=== PATIENT | female | born 1980 | race Caucasian/White ===

== ENCOUNTER → 2017-02-21 | Outpatient (CLI) | payer BC ==
[2017-02-21 09:57] LABS: ALBUMIN 3.5 GM/DL (3.2-5.2); ALBUMIN/GLOBULIN RATIO 0.97 (1.00-1.93); ALKALINE PHOSPHATASE 91 U/L (45-117); ALT/SGPT 25 U/L (12-78); ANION GAP 8 MEQ/L (8-16); AST/SGOT 11 U/L (15-37); BILIRUBIN,TOTAL 0.4 MG/DL (0.2-1.0); BLOOD UREA NITROGEN 14 MG/DL (7-18); CALCIUM LEVEL 8.9 MG/DL (8.5-10.1); CARBON DIOXIDE LEVEL 31 MEQ/L (21-32); CHLORIDE LEVEL 101 MEQ/L (98-107); CHOLESTEROL LEVEL 157 MG/DL (<200); CREATININE FOR GFR 0.74 MG/DL (0.55-1.02); FREE T4 1.74 NG/DL (0.76-1.46); GLOMERULAR FILTRATION RATE > 60.0 (>60); GLUCOSE, FASTING 146 MG/DL (70-105); POTASSIUM SERUM 3.5 MEQ/L (3.5-5.1); SODIUM LEVEL 140 MEQ/L (136-145); TOTAL PROTEIN 7.1 GM/DL (6.4-8.2); TRIGLYCERIDES LEVEL 139 MG/DL (<150)
== END ==
LOC: M LAB 07:58
PROVIDERS: ATTEND Nurse Practitioner Family
DX: E66.01 Morbid (severe) obesity due to excess calories (principal)

== ENCOUNTER → 2017-03-05 | Outpatient (REF) | payer BC | LOC: M SFHCWAGY 08:46 | PROVIDERS: ATTEND Nurse Practitioner Women's Health | DX: Z12.4 Encounter for screening for malignant neoplasm of cervix (principal) ==

== ENCOUNTER → 2017-08-12 | Outpatient (CLI) | payer BC ==
[2017-08-12 08:51] LABS: ANION GAP 8 MEQ/L (8-16); BLOOD UREA NITROGEN 14 MG/DL (7-18); CALCIUM LEVEL 8.7 MG/DL (8.5-10.1); CARBON DIOXIDE LEVEL 27 MEQ/L (21-32); CHLORIDE LEVEL 104 MEQ/L (98-107); CREATININE FOR GFR 0.82 MG/DL (0.55-1.02); FREE T4 1.33 NG/DL (0.76-1.46); GLOMERULAR FILTRATION RATE > 60.0 (>60); GLUCOSE, FASTING 112 MG/DL (70-105); POTASSIUM SERUM 4.4 MEQ/L (3.5-5.1); SODIUM LEVEL 139 MEQ/L (136-145)
[2017-08-12 10:19] LABS: ESTIMATED AVERAGE GLUCOSE 128 MG/DL (60-110); HEMOGLOBIN A1c 6.1 %
== END ==
LOC: M LAB 08:05
DX: R73.09 Other abnormal glucose (principal)

== ENCOUNTER 2017-11-19 14:08 | Emergency (ER) | payer BC | END 2017-11-19 16:23 | disposition home or self-care (01) | LOC: M ED 14:08 | DX: S60.862A Insect bite (nonvenomous) of left wrist, initial encounter (principal); S61.452A Open bite of left hand, initial encounter; W57.XXXA Bitten or stung by nonvenomous insect and other nonvenomous arthropods, initial encounter; Y92.9 Unspecified place or not applicable; Y93.9 Activity, unspecified; Y99.9 Unspecified external cause status; R73.03 Prediabetes; Z79.84 Long term (current) use of oral hypoglycemic drugs; Z79.899 Other long term (current) drug therapy | CPT/HCPCS: 99282 ==

== ENCOUNTER → 2017-12-24 | Outpatient (CLI) | payer BC ==
[2017-12-24 08:32] LABS: ESTIMATED AVERAGE GLUCOSE 146 MG/DL (60-110); HEMOGLOBIN A1c 6.7 %
[2017-12-24 08:48] LABS: ALBUMIN 3.3 GM/DL (3.2-5.2); ALBUMIN/GLOBULIN RATIO 1.06 (1.00-1.93); ALKALINE PHOSPHATASE 72 U/L (45-117); ALT/SGPT 17 U/L (12-78); ANION GAP 6 MEQ/L (8-16); AST/SGOT 12 U/L (7-37); BILIRUBIN,TOTAL 0.3 MG/DL (0.2-1.0); BLOOD UREA NITROGEN 12 MG/DL (7-18); CALCIUM LEVEL 8.2 MG/DL (8.5-10.1); CARBON DIOXIDE LEVEL 27 MEQ/L (21-32); CHLORIDE LEVEL 108 MEQ/L (98-107); CREATININE FOR GFR 0.66 MG/DL (0.55-1.30); GLOMERULAR FILTRATION RATE > 60.0 (>60); GLUCOSE, FASTING 105 MG/DL (70-100); POTASSIUM SERUM 4.2 MEQ/L (3.5-5.1); SODIUM LEVEL 141 MEQ/L (136-145); TOTAL PROTEIN 6.4 GM/DL (6.4-8.2)
== END ==
LOC: M LAB 07:37
DX: R73.09 Other abnormal glucose (principal)
CPT/HCPCS: 80053

== ENCOUNTER → 2018-03-06 | Outpatient (CLI) | payer BC ==
[2018-03-06 09:59] LABS: ALBUMIN 3.5 GM/DL (3.2-5.2); ALBUMIN/GLOBULIN RATIO 1.09 (1.00-1.93); ALKALINE PHOSPHATASE 73 U/L (45-117); ALT/SGPT 20 U/L (12-78); ANION GAP 8 MEQ/L (8-16); AST/SGOT 13 U/L (7-37); BILIRUBIN,TOTAL 0.3 MG/DL (0.2-1.0); BLOOD UREA NITROGEN 11 MG/DL (7-18); CALCIUM LEVEL 8.8 MG/DL (8.5-10.1); CARBON DIOXIDE LEVEL 29 MEQ/L (21-32); CHLORIDE LEVEL 104 MEQ/L (98-107); CREATININE FOR GFR 0.77 MG/DL (0.55-1.30); GLOMERULAR FILTRATION RATE > 60.0 (>60); GLUCOSE, FASTING 93 MG/DL (70-100); POTASSIUM SERUM 4.6 MEQ/L (3.5-5.1); SODIUM LEVEL 141 MEQ/L (136-145); TOTAL PROTEIN 6.7 GM/DL (6.4-8.2)
[2018-03-06 10:28] LABS: ESTIMATED AVERAGE GLUCOSE 134 MG/DL (60-110); HEMOGLOBIN A1c 6.3 %
== END ==
LOC: M LAB 08:07
DX: F90.1 Attention-deficit hyperactivity disorder, predominantly hyperactive type (principal)
CPT/HCPCS: 80053

== ENCOUNTER → 2018-06-18 | Outpatient (CLI) | payer BC ==
[2018-06-18 13:32] LABS: ALBUMIN 3.5 GM/DL (3.2-5.2); ALKALINE PHOSPHATASE 83 U/L (45-117); ALT/SGPT 19 U/L (12-78); ANION GAP 6 MEQ/L (8-16); AST/SGOT 11 U/L (7-37); BILIRUBIN,TOTAL 0.4 MG/DL (0.2-1.0); BLOOD UREA NITROGEN 14 MG/DL (7-18); CALCIUM LEVEL 8.5 MG/DL (8.5-10.1); CARBON DIOXIDE LEVEL 31 MEQ/L (21-32); CHLORIDE LEVEL 103 MEQ/L (98-107); CHOLESTEROL LEVEL 147 MG/DL (<200); CHOLESTEROL RISK RATIO 3.195 (<5); CREATININE FOR GFR 0.86 MG/DL (0.55-1.30); FREE T4 1.24 NG/DL (0.76-1.46); GLOMERULAR FILTRATION RATE > 60.0 (>58); GLUCOSE, FASTING 111 MG/DL (70-100); HDL CHOLESTEROL 46 MG/DL (>40); LDL CHOLESTEROL 81 MG/DL (<100); NON-HDL-C 101 MG/DL; POTASSIUM SERUM 4.2 MEQ/L (3.5-5.1); SODIUM LEVEL 140 MEQ/L (136-145); TRIGLYCERIDES LEVEL 99 MG/DL (<150)
[2018-06-18 13:39] LABS: ESTIMATED AVERAGE GLUCOSE 140 MG/DL (60-110); HEMOGLOBIN A1c 6.5 %
== END ==
LOC: M WUC 08:42
DX: E11.9 Type 2 diabetes mellitus without complications (principal); E78.49 Other hyperlipidemia; E89.0 Postprocedural hypothyroidism
CPT/HCPCS: 84443

== ENCOUNTER → 2018-08-13 | Outpatient (CLI) | payer BC ==
[~2018-08-13] MED LIST: BACT800T5 PO; BUPR300T34; CEPH500T PO; FURO20TA2; LEVO200T4; LISI-542; METF500T13; PHEN-239; PRED20TA PO; SIMV40TA2
--- NOTE | 2018-08-13 09:16 | REPMRS ---
Patient History The patient states she has not had a clinical breast exam in over a year. Family history of lung cancer in maternal grandmother, breast cancer at age 48 in maternal aunt, cervical cancer at age 40 in mother. Taking unspecified hormones for 12 years. Digital Mammo Screening Bilat: August 13, 2018 - Exam #: [id number] Bilateral CC and MLO view(s) were taken. Technologist: Genevieve Morin, Technologist No prior studies available for comparison. FINDINGS: There are scattered fibroglandular densities. There is no evidence of dominant mass, architectural distortion, or clustered microcalcification typical of malignancy. 3-D tomosynthesis shows no additional findings. Assessment: BI-RADS/ACR category 1 mammogram. Negative. Recommendation Routine screening mammogram of both breasts in 1 year (for women over age 40). This patient's Lifetime Breast Cancer RIsk is estimated at 14.6 %. This mammogram was interpreted with the aid of an FDA-approved computer-aided dectection system. Electronically Signed By: Adeel Benavidez MD 08/13/18 0990
== END ==
LOC: M RAD 08:43
PROVIDERS: ATTEND Nurse Practitioner Family
DX: Z12.31 Encounter for screening mammogram for malignant neoplasm of breast (principal); Z80.3 Family history of malignant neoplasm of breast; Z80.1 Family history of malignant neoplasm of trachea, bronchus and lung; Z80.49 Family history of malignant neoplasm of other genital organs

== ENCOUNTER → 2018-09-22 | Outpatient (CLI) | payer BC ==
--- NOTE | 2018-09-22 19:06 | REP ---
Clinical: Pain. Status post fall. Technique: AP and lateral views of the right forearm. Findings: Osseous structures, joint spaces, and surrounding soft tissues are normal. No acute fracture or dislocation. No subcutaneous emphysema or radiodense foreign body. Impression: Acute fracture dislocation. Electronically Signed by Elfego Valderrama MD 09/22/2018 06:58 P
--- NOTE | 2018-09-22 19:07 | REP ---
Clinical: Pain with recent fall/Trauma. Technique: AP, lateral, bilateral oblique views. Findings: The carpal bones, surrounding osseous structures, soft tissues, and joint spaces are normal. There is no evidence for acute fracture or dislocation. No subcutaneous emphysema or radiodense foreign body. Impression: No acute fracture or dislocation Electronically Signed by Elfego Valderrama MD 09/22/2018 06:59 P
== END ==
LOC: M WUC 18:18
PROVIDERS: ATTEND Physician Assistant
DX: M25.531 Pain in right wrist (principal)

== ENCOUNTER → 2018-11-07 | Outpatient (CLI) | payer BC ==
[~2018-11-07] MED LIST changes: +GASTROGRAFIN SOLUTION 30ML (Q9963) As Ordered ONE; +ISOVUE-370 76% 100ML VIAL (Q9967) As Ordered ONE
--- NOTE | 2018-11-07 19:49 | REP ---
CT abdomen and pelvis without and with IV contrast: With oral contrast. History: Abnormal ultrasound showing pancreatic cysts. Pancreatic protocol. CT contrast dose: 100 ml of intravenous Isovue 370. CT findings: Preliminary digital paver radiograph is unremarkable. The lung bases are clear. The liver contains multiple small nonenhancing low densities consistent with cysts. Largest of these is in the quadrate lobe measuring 1.7 cm in greatest diameter. The liver is not felt to be enlarged. No suspicious liver mass lesion is seen. The spleen is normal in size and homogeneous in texture. There is an accessory splenule inferiorly. There are numerous simple cysts affecting the kidneys which are mildly enlarged. This is consistent with polycystic kidney disease. The largest right renal cyst measures 5.2 cm. The largest cyst in the left kidney measures 4.9 cm. There are multiple small cysts in the head and body of the pancreas. There are also calcifications in the pancreatic head. Calcifications suggest chronic pancreatitis. The pancreatic cysts appear to be septated. The largest cystic area in the head of the pancreas measures 2.1 cm in greatest diameter. No evidence of hypervascular or hypovascular mass lesion is seen. No biliary or pancreatic ductal dilation is observed. There is no evidence of regional lymphadenopathy. The gallbladder is unremarkable. No retroperitoneal mass or adenopathy is observed. There is cystic enlargement of the left ovary with some mural thickening along its left posterior celestin. This measures 9.3 x 7.2 x 6.1 cm. The right ovary is unremarkable. Urinary bladder is intact. The uterus is surgically absent. No abdominal wall defect is seen. A normal retrocecal appendix is seen terminating posterior to the inferior liver edge. No bony abnormality is seen. Impression: Multiple bilateral renal, pancreatic, and hepatic cysts. Findings are suggestive of polycystic kidney disease. There are multiple calcifications in the pancreatic head as well and there may be some element of chronic pancreatitis. Consider interval followup of the pancreatic cysts. In addition, there is a 9 cm cystic mass in the left ovary. This should be evaluated sonographically as there appears to be mural thickening which raises suspicion of ovarian malignancy. There is no evidence of ascites or adenopathy. Electronically Signed by Yvan Benavidez MD 11/07/2018 08:18 P
== END ==
LOC: M RAD 15:53
PROVIDERS: ATTEND Internal Medicine Gastroenterology
DX: R93.3 Abnormal findings on diagnostic imaging of other parts of digestive tract (principal); K76.89 Other specified diseases of liver; K86.2 Cyst of pancreas; N28.1 Cyst of kidney, acquired; N83.8 Other noninflammatory disorders of ovary, fallopian tube and broad ligament
CPT/HCPCS: 74178; Q9963; Q9967

== ENCOUNTER → 2018-11-12 | Outpatient (CLI) | payer BC ==
[~2018-11-12] MED LIST changes: -GASTROGRAFIN SOLUTION 30ML (Q9963) As Ordered ONE; -ISOVUE-370 76% 100ML VIAL (Q9967) As Ordered ONE
[2018-11-12 12:52] LABS: ALBUMIN 3.8 GM/DL (3.2-5.2); ALT/SGPT 23 U/L (12-78); BILIRUBIN,TOTAL 0.3 MG/DL (0.2-1.0); BLOOD UREA NITROGEN 5 MG/DL (7-18); CALCIUM LEVEL 8.7 MG/DL (8.5-10.1); CARBON DIOXIDE LEVEL 28 MEQ/L (21-32); CHLORIDE LEVEL 105 MEQ/L (98-107); CREATININE FOR GFR 0.72 MG/DL (0.55-1.30); FREE T4 1.64 NG/DL (0.76-1.46); GLOMERULAR FILTRATION RATE > 60.0 (>58); GLUCOSE, FASTING 111 MG/DL (70-100); POTASSIUM SERUM 3.6 MEQ/L (3.5-5.1); SODIUM LEVEL 140 MEQ/L (136-145); TOTAL PROTEIN 6.9 GM/DL (6.4-8.2)
[2018-11-12 12:58] LABS: HEMOGLOBIN A1c 6.5 %
== END ==
LOC: M WUC 08:36
PROVIDERS: ATTEND Nurse Practitioner Family
DX: E89.0 Postprocedural hypothyroidism (principal); E11.9 Type 2 diabetes mellitus without complications

== ENCOUNTER → 2018-11-17 | Outpatient (CLI) | payer BC ==
--- NOTE | 2018-11-17 14:36 | REP ---
PELVIC ULTRASOUND: Real-time sonographic evaluation of the pelvis is performed utilizing transabdominal and endovaginal technique. The bladder measures 4.4 x 5.8 x 5.2 cm. The patient has had a prior hysterectomy 5 years ago. Right ovary is normal in size and echotexture 2.8 x 1.6 x 2.3 cm. Left ovary is enlarged measure 8.9 x 6.7 x 7.6 cm. There is a large simple cyst in the left ovary 8.5 x 6.8 x 6.1 cm. No definite internal nodules or significant septations are seen. There is no evidence of ovarian torsion bilaterally with duplex Doppler evaluation. IMPRESSION: Large simple cyst left ovary, maximum diameter is 8.5 cm. If no intervention is planned, then I would recommend further evaluation with MRI. Electronically Signed by Aydin Canales MD 11/17/2018 05:43 P
== END ==
LOC: M RAD 12:41
PROVIDERS: ATTEND Nurse Practitioner Family
DX: R93.5 Abnormal findings on diagnostic imaging of other abdominal regions, including retroperitoneum (principal); N83.202 Unspecified ovarian cyst, left side

== ENCOUNTER → 2018-12-03 | Outpatient (CLI) | payer BC | LOC: M SMT 14:34 | PROVIDERS: ATTEND Obstetrics & Gynecology | DX: Z13.79 Encounter for other screening for genetic and chromosomal anomalies (principal) ==

== ENCOUNTER → 2019-01-01 | Outpatient (CLI) | payer BC ==
--- NOTE | 2019-01-01 11:30 | REP ---
LEFT KNEE, FOUR VIEWS: HISTORY: Foreign body. There is no acute fracture or dislocation. The joint spaces are normal in appearance. An osteophyte is present on the medial femur. A 5 mm metallic foreign body is present in the soft tissue along the posterolateral aspect of the distal femur. IMPRESSION: There is a 5 mm foreign body in the soft tissue along the posterolateral aspect of the distal femur. Electronically Signed by Yinka Álvarez MD 01/01/2019 11:35 A
[2019-01-01 19:17] LABS: BLOOD UREA NITROGEN 12 MG/DL (7-18); CREATININE FOR GFR 0.79 MG/DL (0.55-1.30); GLOMERULAR FILTRATION RATE > 60.0 (>58)
== END ==
LOC: M WUC 10:45
PROVIDERS: ATTEND Obstetrics & Gynecology
DX: E11.8 Type 2 diabetes mellitus with unspecified complications (principal); S80.252A Superficial foreign body, left knee, initial encounter; X58.XXXA Exposure to other specified factors, initial encounter; Y92.89 Other specified places as the place of occurrence of the external cause

== ENCOUNTER → 2019-01-03 | Outpatient (CLI) | payer BC ==
--- NOTE | 2019-01-03 14:01 | REP ---
MRA Brain without contrast History: Headache There is no aneurysm, arteriovenous malformation or atherosclerotic lesion. Major intracranial vessels are patent. The vertebral arteries are equal in size. Impression: Normal MRA brain. Electronically Signed by Yinka Álvarez MD 01/03/2019 01:53 P
--- NOTE | 2019-01-03 14:12 | REP ---
MR BRAIN WITHOUT CONTRAST: HISTORY: Headache. A single punctate focus of increased signal intensity on T2-weighted images is present in the subcortical white matter of the left frontal lobe. There is no intraparenchymal hemorrhage, infarct, mass or midline shift. The sella turcica is partially empty. The ventricular system is normal in appearance. There is no extracerebral collection. The sinuses are clear. IMPRESSION: There is a single punctate focus of increased signal intensity in the subcortical white matter of the left frontal lobe. This is a nonspecific finding. Electronically Signed by Yinka Álvarez MD 01/03/2019 02:27 P
== END ==
LOC: M RAD 12:01
PROVIDERS: ATTEND Internal Medicine Nephrology
DX: E28.2 Polycystic ovarian syndrome (principal); R51 Headache

== ENCOUNTER → 2019-02-03 | Outpatient (CLI) | payer BC ==
[~2019-02-03] MED LIST changes: +ADDE20CA3 PO; -BUPR300T34; +BUPR300T34 PO; -FURO20TA2; +FURO20TA2 PO; -LEVO200T4; +LEVO200T4 PO; -LISI-542; +LISI-542 PO; -METF500T13; +METF500T13 PO; +OXYCO5TA PO; -SIMV40TA2; +SIMV40TA2 PO; +VITA1CAP25 PO
--- NOTE | 2019-02-03 17:14 | ECGEPIP ---
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
== END ==
LOC: M EKG 15:51
PROVIDERS: ATTEND Anesthesiology
DX: Z01.818 Encounter for other preprocedural examination (principal); E11.9 Type 2 diabetes mellitus without complications

== ENCOUNTER → 2019-02-03 | Outpatient (CLI) | payer BC ==
--- NOTE | 2019-02-03 23:15 | REP ---
Clinical: Ovarian cyst . Technique: Transabdominal pelvic ultrasound followed by transvaginal examination for better evaluation of the adnexa with color Doppler evaluation of the ovaries. Findings: Bladder is under distended. Evidence of prior hysterectomy without pelvic mass or fluid collection. Right ovary is normal in appearance and vascularity without evidence for torsion and measures 3.0 x 2.1 x 2.0 cm (RI 0.50) . Left ovary measures 9.4 x 8.2 x 8.2 cm ( satisfactory venous flow noted ) dominated by a 9.0 x 6.6 x 6.9 cm complex cyst with daughter cyst. Findings are essentially unchanged compared to prior examination. Impression: 1. Stable complex large cyst dominating the left ovary unchanged from prior examination. Electronically Signed by Elfego Valderrama MD 02/03/2019 11:06 P
== END ==
LOC: M RAD 07:17
PROVIDERS: ATTEND Obstetrics & Gynecology
DX: D27.1 Benign neoplasm of left ovary (principal)

== ENCOUNTER 2019-02-11 06:16 | Day surgery (SDC) | payer BC ==
[~2019-02-11] VITALS: Ht 157.5 cm; Wt 118.8 kg
[~2019-02-11 06:16] MED LIST changes: +LIDOCAINE 1% MDV 20ML VIAL SQ PRN; +LR 1,000 ML IV ONE; -OXYCO5TA PO
[2019-02-11 06:51] LABS: HEMATOCRIT 43.2 % (36.0-47.0); HEMOGLOBIN 14.3 g/dl (12.0-15.5); MEAN CORPUSCULAR HEMOGLOBIN 29.4 pg (27.0-33.0); MEAN CORPUSCULAR HGB CONC 33.1 g/dl (32.0-36.5); MEAN CORPUSCULAR VOLUME 88.9 fl (80.0-96.0); PLATELET COUNT, AUTOMATED 229 10^3/uL (150-450); RED BLOOD COUNT 4.86 10^6/uL (4.00-5.40)
[2019-02-11] MEDS ORDERED: fentaNYL 250 MCG/5 ML INJECTION (J3010) As Ordered ONE (06:58)
[2019-02-11] MEDS ORDERED: MIDAZOLAM INJ 2 MG/2 ML VIAL (J2250) As Ordered ONE (06:58)
[2019-02-11] MEDS ORDERED: SUGAMMADEX SODIUM 500 MG/5 ML VIAL (BRIDION) As Ordered ONE (07:03)
[2019-02-11] MEDS ORDERED: KETOROLAC 60 MG/2 ML VIAL (J1885) As Ordered ONE (07:03)
[2019-02-11] MEDS ORDERED: ACETAMINOPHEN 1000MG 100ML IV BTL (OFIRMEV) (J0131 PER 10MG) As Ordered ONE (07:03)
[2019-02-11] MEDS ORDERED: dexameTHASONE 4 MG/ML 1ML VIAL (J1100) As Ordered ONE (07:03)
[2019-02-11] MEDS ORDERED: LIDOCAINE 2% INJ 100 MG/5 ML SDV (FOR ANES.) As Ordered ONE (07:03)
[2019-02-11] MEDS ORDERED: PROPOFOL 200 MG/20 ML VIAL As Ordered ONE (07:03)
[2019-02-11] MEDS ORDERED: ONDANSETRON 4MG/2ML VIAL (J2405) As Ordered ONE (07:03)
[2019-02-11] MEDS ORDERED: ROCURONIUM BROMIDE 50 MG/5 ML VIAL As Ordered ONE (07:03)
[2019-02-11] MEDS ORDERED: BUPIVACAINE HCL 0.25% 30 ML VIAL As Ordered ONE (07:09)
[2019-02-11] MEDS ORDERED: KETAMINE HCL 200 MG/20 ML VIAL As Ordered ONE (07:48)
[2019-02-11] MEDS ORDERED: GLYCOPYRROLATE INJ 0.2 MG/ML 2 ML VIAL As Ordered ONE (07:50)
[2019-02-11] MEDS ORDERED: OXYCO5TA PO (09:07)
[2019-02-11] MEDS ORDERED: HYDROMORPHONE HCL 0.5 MG/ 0.5 ML SYRINGE (J1170 PER 1) IV PRN (09:30)
[2019-02-11] MEDS ORDERED: PERCOCET 5MG/325MG TAB PO PRN (09:30)
[2019-02-11] MEDS ORDERED: ONDANSETRON 4MG/2ML VIAL (J2405) IV PRN (09:30)
[2019-02-11] MEDS ORDERED: LR 1,000 ML IV SCH ×2 (09:30)
[2019-02-11] MEDS ORDERED: fentaNYL 100 MCG/2 ML INJECTION (J3010) IV PRN (09:30)
[2019-02-11 11:10] VITALS: BP 122/87
--- NOTE | 2019-02-12 12:06 | RO ---
DATE OF PROCEDURE: 02/11/2019 PREOPERATIVE DIAGNOSIS: Left 10 cm ovarian cyst. POSTOPERATIVE DIAGNOSES: Possible left ovarian cyst and significant bowel adhesions. PROCEDURE: Diagnostic laparoscopy. SURGEON: Nicole Bhakta MD ANIMAL KILLER: Daksha Babin MD PGY-3 ANESTHESIA: General. FLUID: 1100 mL. ESTIMATED BLOOD LOSS (EBL): 5 mL. URINE OUTPUT: 50 mL. SPECIMENS: None. FINDINGS: Significant adhesions of bowel and omentum to the anterior abdominal wall, including just underneath the previous Pfannenstiel incision. No cyst visualized in right or left lower quadrant. No safe port entry site other than umbilicus. COMPLICATIONS: None. DESCRIPTION OF PROCEDURE: The patient was met and greeted in the preoperative holding area where all questions were answered and informed consent was reviewed. She was then taken to the operating room where general anesthesia was administered and found to be adequate. She was prepped and draped in the normal sterile fashion in the supine position. A Sanchez catheter was placed prior. Sequential compression devices (SCDs) were on and functioning. A time-out procedure was performed. 0.25% Marcaine was injected at the base of the umbilicus and a 10 mm incision was made on and 11 mm trocar was placed under direct visualization. The carbon dioxide was connected and insufflation was begun. At this time, it was noted that the trocar had been placed through omentum that was adhered to the anterior abdominal wall. The trocar was removed and entered additional times two confirmed that it was just omentum. An abdominal survey was performed, which revealed the findings above. Extensive discussion was had with both Dr. Bhakta and Dr. Perez to try and figure out a safe port site to begin taking down adhesions, and ultimately it was felt that there was no safe site as bowel was adhered to multiple parts of the anterior abdominal wall. After discussion with the patient's family member, the decision was made to not proceed with an open procedure today. The trocar was removed and the skin incision was closed. The patient was taken to the recovery room in stable condition. She tolerated the procedure well. All counts were correct per the operating room staff. Dr. Bhakta was present and scrubbed for the entire procedure. [facility]
== END 2019-02-11 11:20 | disposition home or self-care (01) ==
LOC: M SDC 06:16
PROVIDERS: ATTEND Obstetrics & Gynecology
DX: N73.6 Female pelvic peritoneal adhesions (postinfective) (principal); K56.50 Intestinal adhesions [bands], unspecified as to partial versus complete obstruction; I10 Essential (primary) hypertension; E11.9 Type 2 diabetes mellitus without complications; E03.9 Hypothyroidism, unspecified; F32.9 Major depressive disorder, single episode, unspecified; Q61.3 Polycystic kidney, unspecified; F17.210 Nicotine dependence, cigarettes, uncomplicated; Z79.84 Long term (current) use of oral hypoglycemic drugs; Z79.899 Other long term (current) drug therapy
CPT/HCPCS: 36415; 49320; 85027; 86850; 86900; 86901; J0131; J1100; J1885; J2250; J2405; J3010

== ENCOUNTER → 2019-03-13 | Outpatient (CLI) | payer BC ==
[~2019-03-13] MED LIST changes: -LIDOCAINE 1% MDV 20ML VIAL SQ PRN; -LR 1,000 ML IV ONE; +OXYCO5TA PO; +PROHANCE 279.3MG/ML 15ML VIAL (A9576) As Ordered ONE; +PROHANCE 279.3MG/ML 5ML VIAL (A9576) As Ordered ONE
--- NOTE | 2019-03-13 18:15 | REP ---
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 Comparison mammography August 13, 2018. Technique:3 Aimee MRI imaging was performed with a dedicated breast coil. Axial, coronal, and sagittal T1 and T2-weighted scans were obtained with and without fat saturation in the usual fashion. The study includes dynamically acquired post gadolinium enhanced imaging subtraction imaging. Maximal intensity projection and multiplanar re-formation imaging is included as well. The study was interpreted with the aid of Painting With A TwistD, an FDA approved computer-aided detection (CAD) software program, on a dedicated breast MRI work station. The gadolinium enhancement dose is 20 ml of intravenous ProHance. Findings: There are mild to moderate scattered fibroglandular elements present bilaterally. There is no evidence of axillary adenopathy or significant breast cystic change. High-resolution pre- and postcontrast T1 and T2-weighted scans show no evidence of suspicious morphologic abnormality. Dynamically acquired sequential post contrast images show no suspicious focus of enhancement and/or washout in either breast to suggest malignancy. Subtraction images are unremarkable. Impression: BIRADS category 1 negative bilateral breast MRI study. Electronically Signed by Yvan Benavidez MD 03/16/2019 08:23 A
== END ==
LOC: M RAD 14:35
PROVIDERS: ATTEND Obstetrics & Gynecology
DX: Z15.01 Genetic susceptibility to malignant neoplasm of breast (principal)

== ENCOUNTER 2019-04-17 06:10 | Day surgery (SDC) | payer BC ==
[~2019-04-17] VITALS: Ht 157.5 cm; Wt 117.0 kg
[~2019-04-17 06:10] MED LIST changes: +LIDOCAINE 1% MDV 20ML VIAL SQ PRN; +LR 1,000 ML IV ONE; -PROHANCE 279.3MG/ML 15ML VIAL (A9576) As Ordered ONE; -PROHANCE 279.3MG/ML 5ML VIAL (A9576) As Ordered ONE
[2019-04-17 06:36] LABS: HEMOGLOBIN 14.2 g/dl (12.0-15.5); MEAN CORPUSCULAR HEMOGLOBIN 30.3 pg (27.0-33.0); MEAN CORPUSCULAR HGB CONC 33.8 g/dl (32.0-36.5); MEAN CORPUSCULAR VOLUME 89.6 fl (80.0-96.0); PLATELET COUNT, AUTOMATED 243 10^3/uL (150-450); RED BLOOD COUNT 4.69 10^6/uL (4.00-5.40); WHITE BLOOD COUNT 9.5 10^3/uL (4.0-10.0)
[2019-04-17] MEDS ORDERED: VASOPRESSIN INJ 20 UNITS/ML VIAL As Ordered ONE (06:54)
[2019-04-17] MEDS ORDERED: BUPIVACAINE HCL 0.25% 30 ML VIAL As Ordered ONE (06:54)
[2019-04-17] MEDS ORDERED: PROPOFOL 200 MG/20 ML VIAL As Ordered ONE (06:55)
[2019-04-17] MEDS ORDERED: LIDOCAINE 2% INJ 100 MG/5 ML SDV (FOR ANES.) As Ordered ONE (06:55)
[2019-04-17] MEDS ORDERED: ROCURONIUM BROMIDE 50 MG/5 ML VIAL As Ordered ONE ×2 (06:55→08:33)
[2019-04-17] MEDS ORDERED: ONDANSETRON 4MG/2ML VIAL (J2405) As Ordered ONE (06:56)
[2019-04-17] MEDS ORDERED: KETOROLAC 60 MG/2 ML VIAL (J1885) As Ordered ONE (06:56)
[2019-04-17] MEDS ORDERED: dexameTHASONE 4 MG/ML 1ML VIAL (J1100) As Ordered ONE (06:56)
[2019-04-17] MEDS ORDERED: MIDAZOLAM INJ 2 MG/2 ML VIAL (J2250) As Ordered ONE (07:02)
[2019-04-17] MEDS ORDERED: fentaNYL 250 MCG/5 ML INJECTION (J3010) As Ordered ONE (07:02)
[2019-04-17] MEDS ORDERED: ceFAZolin 2 GM/D5W 50 ML IV BAG (J0690 PER 500MG) As Ordered ONE (08:09)
[2019-04-17] MEDS ORDERED: ACETAMINOPHEN 1000MG 100ML IV BTL (OFIRMEV) (J0131 PER 10MG) As Ordered ONE (08:13)
[2019-04-17] MEDS ORDERED: GLYCOPYRROLATE INJ 0.2 MG/ML 2 ML VIAL As Ordered ONE (08:28)
[2019-04-17] MEDS ORDERED: SUGAMMADEX SODIUM 500 MG/5 ML VIAL (BRIDION) As Ordered ONE (08:32)
[2019-04-17] MEDS ORDERED: fentaNYL 100 MCG/2 ML INJECTION (J3010) As Ordered ONE ×2 (08:53→10:01)
[2019-04-17] MEDS: fentaNYL 100 MCG/2 ML INJECTION (J3010) IV PRN ×4 (10:05→10:20)
[2019-04-17] MEDS ORDERED: oxyCODONE 5MG TAB As Ordered ONE (10:17)
[2019-04-17] MEDS ORDERED: MORPHINE 1MG/ML IN 0.9% NACL 100ML IV BAG IV PRN (10:30)
[2019-04-17] MEDS ORDERED: NALBUPHINE HCL 10 MG/ML AMP (J2300) IV PRN (10:30)
[2019-04-17] MEDS ORDERED: NALOXONE INJ 0.4 MG/1 ML VIAL (J2310) IV PRN (10:30)
[2019-04-17] MEDS ORDERED: EPIDURAL/PCA KEYS XX PRN (10:30)
[2019-04-17] MEDS ORDERED: PROMETHAZINE INJ 25 MG/ML VIAL (J2550) IV PRN (10:30)
[2019-04-17] MEDS ORDERED: LR 1,000 ML IV SCH ×2 (10:30→11:00)
[2019-04-17] MEDS ORDERED: ONDANSETRON 4MG/2ML VIAL (J2405) IV PRN ×2 (10:30→11:00)
[2019-04-17] MEDS ORDERED: diphenhydrAMINE INJ 50MG/ML VIAL (J1200) IV PRN (10:30)
[2019-04-17] MEDS ORDERED: oxyCODONE 5MG TAB PO PRN (11:00)
[2019-04-17 11:30] VITALS: BP 124/74
[2019-04-17 12:00] VITALS: BP 118/72
[2019-04-17 12:30] VITALS: BP 112/75
[2019-04-17 13:30] VITALS: BP 115/75
[2019-04-17 14:16] VITALS: O2SAT 99
[2019-04-17] MEDS: KETOROLAC 30 MG/ML VIAL (J1885) IV SCH ×2 (14:40→22:34)
[2019-04-17] MEDS ORDERED: NS 1,000 ML IV SCH (14:45)
[2019-04-17 22:00] VITALS: BP 112/69
[2019-04-18 02:00] VITALS: BP 107/67
[2019-04-18] MEDS: KETOROLAC 30 MG/ML VIAL (J1885) IV SCH (04:43)
[2019-04-18 06:00] VITALS: BP 105/66
[2019-04-18] MEDS ORDERED: LEVOTHYROXINE 125MCG TABLET (0.125MG) PO SCH (06:00)
[2019-04-18 06:47] LABS: HEMATOCRIT 37.6 % (36.0-47.0); HEMOGLOBIN 12.5 g/dl (12.0-15.5); MEAN CORPUSCULAR HEMOGLOBIN 30.4 pg (27.0-33.0); MEAN CORPUSCULAR HGB CONC 33.2 g/dl (32.0-36.5); MEAN CORPUSCULAR VOLUME 91.5 fl (80.0-96.0); PLATELET COUNT, AUTOMATED 217 10^3/uL (150-450); RED BLOOD COUNT 4.11 10^6/uL (4.00-5.40); WHITE BLOOD COUNT 10.9 10^3/uL (4.0-10.0)
[2019-04-18] MEDS ORDERED: IBUPROFEN 800 MG TAB PO PRN (09:00)
[2019-04-18] MEDS ORDERED: METF-954 PO (09:56)
[2019-04-18] MEDS ORDERED: LEVO50TA45 PO (09:56)
[2019-04-18] MEDS ORDERED: ADDE20TA PO (09:56)
[2019-04-18] MEDS: metFORMIN 850 MG TAB PO SCH ×2 (09:59→17:34)
[2019-04-18] MEDS: LEVOTHYROXINE 125MCG TABLET (0.125MG) PO SCH (09:59)
[2019-04-18 10:00] VITALS: BP 109/73
[2019-04-18] MEDS: LISINOPRIL 5 MG TAB PO SCH (10:00)
[2019-04-18] MEDS: buPROPion **XL** TABLET 150MG (WELLBUTRIN XL) PO SCH (10:00)
[2019-04-18] MEDS: ADDERALL 5 MG TAB PO SCH ×2 (10:06→14:25)
[2019-04-18] MEDS: PERCOCET 5MG/325MG TAB PO PRN ×2 (10:08→14:25)
[2019-04-18 14:00] VITALS: BP 110/69
[2019-04-18] MEDS ORDERED: ONDANSETRON 4MG/2ML VIAL (J2405) IV PRN (19:30)
[2019-04-18 22:00] VITALS: BP 116/77
[2019-04-19] MEDS: SIMETHICONE 80 MG CHEW TAB PO PRN ×2 (01:07→14:56)
[2019-04-19 06:00] VITALS: BP 139/77
[2019-04-19] MEDS: LEVOTHYROXINE 125MCG TABLET (0.125MG) PO SCH (06:30)
[2019-04-19] MEDS: metFORMIN 850 MG TAB PO SCH ×2 (08:00→18:33)
[2019-04-19] MEDS: ADDERALL 5 MG TAB PO SCH ×2 (08:52→14:04)
[2019-04-19] MEDS: buPROPion **XL** TABLET 150MG (WELLBUTRIN XL) PO SCH (08:52)
[2019-04-19 08:53] VITALS: BP 115/81
[2019-04-19] MEDS: LISINOPRIL 5 MG TAB PO SCH (08:53)
[2019-04-19 14:00] VITALS: BP 136/76
[2019-04-19] MEDS: DOCUSATE SODIUM 100 MG CAP PO SCH ×2 (14:04→22:52)
[2019-04-19] MEDS: PERCOCET 5MG/325MG TAB PO PRN (14:04)
[2019-04-19 22:00] VITALS: BP 113/79
[2019-04-20] MEDS: PERCOCET 5MG/325MG TAB PO PRN ×2 (02:24→08:29)
[2019-04-20 06:00] VITALS: BP 112/79
[2019-04-20] MEDS: LEVOTHYROXINE 125MCG TABLET (0.125MG) PO SCH (06:21)
[2019-04-20] MEDS ORDERED: OXYC1TAB23 PO (07:13)
[2019-04-20] MEDS ORDERED: IBUP80TA PO (07:15)
[2019-04-20] MEDS: ADDERALL 5 MG TAB PO SCH (08:29)
[2019-04-20] MEDS: metFORMIN 850 MG TAB PO SCH (08:30)
[2019-04-20] MEDS: LISINOPRIL 5 MG TAB PO SCH (08:30)
[2019-04-20] MEDS: DOCUSATE SODIUM 100 MG CAP PO SCH (08:30)
[2019-04-20] MEDS: buPROPion **XL** TABLET 150MG (WELLBUTRIN XL) PO SCH (08:30)
--- NOTE | 2019-04-21 07:32 | DSES ---
DATE OF ADMISSION: 04/17/2019 DATE OF DISCHARGE: 04/20/2019 ADMISSION DIAGNOSIS: Left ovarian cystis mass, pelvic adhesions. DISCHARGE DIAGNOSIS: Left ovarian cystic mass, pelvic adhesions. PROCEDURE: Exploratory laparotomy, lysis of adhesions, left salpingo-oophorectomy. HISTORY: This is a 38-year-old female with multiple previous abdominal surgeries admitted for laparotomy due to large left ovarian complex mass. The mass was attempted to be removed laparoscopically in the past, however, massive pelvic adhesions prevented this approach. HOSPITAL COURSE: On 04/17/2019, the patient underwent exploratory laparotomy, lysis of adhesions and removal of left ovarian mass. The procedure was without complications. Her postoperative course was unremarkable. She had adequate return of bladder and bowel function. Her postoperative hemoglobin was 12.5 g/dl. She was deemed stable for discharge on postoperative day #3. DISPOSITION: The patient will followup with Dr. Bhakta in two weeks. Instructions reviewed.
--- NOTE | 2019-04-21 16:12 | RO ---
DATE OF OPERATION: 04/17/2019 PREOPERATIVE DIAGNOSIS: Left adnexal mass. POSTOPERATIVE DIAGNOSIS: Left adnexal mass. PROCEDURES PERFORMED: 1. Exploratory laparotomy with left oophorectomy. 2. Lysis of adhesions. SURGEON: Nicole Bhakta MD ACTIVE DIRECTORY SPECIALIST: Yinka Perez MD ANESTHESIA: General tracheal anesthesia. INFECTION CLASSIFICATION: #2. PREOPERATIVE ANTIBIOTICS: 2 grams of Ancef. ESTIMATED BLOOD LOSS: 20 mL. URINE OUPTPUT: 100 mL. INTRAVENOUS FLUIDS: 900 mL of lactated Ringer solution. OPERATIVE FINDINGS: Large, approximately 8 cm left ovarian mass. Dense abdominal adhesions. Normal-appearing right ovary. Left ureter was visualized. DESCRIPTION OF OPERATION: After informed consent was obtained and written consent was reviewed, the patient was brought to the operating room where she was placed in a supine position and general endotracheal anesthesia was administered. She was then prepped and draped in normal sterile fashion. Sanchez catheter was set and placed to gravity. Time-out in the operating room was then performed identifying the patient, procedure to be performed, as well as drug allergies. A Pfannenstiel skin incision was made along the previous skin incision and this was carried down to the underlying rectus fascia. The fascia was scored and was extended bilaterally. The fascia was dissected off the underlying rectus muscles both superiorly inferiorly. The rectus muscles were entered in the midline. The peritoneum was then tented and excised and was entered sharply. This was done with care. Meticulous dissection freed up omentum and bowel from the anterior abdominal wall. With a series of sharp and blunt dissection, the left pelvic sidewall was clear freeing up the left adnexa. Once cleared, the left ureter was identified. Once identified, the left infundibulopelvic ligament was doubly clamped and ligated. The specimen was removed intact. This area was stitch tied with #0 Vicryl. The abdomen was irrigated and suctioned. Surgical sites were inspected and noted be hemostatic. The right ovary was then dissected out and it was identified and appeared to be normal. The rectus muscles were then reapproximated with #3-0 Vicryl and this was done incorporating some of the anterior peritoneum. Subcutaneous tissue was then closed using #3-0 Vicryl. Several subdermal stitches were placed with #3-0 Vicryl and the skin was closed with #4-0 Monocryl in a subcuticular fashion. The incision was then cleaned and dried. Steri-Strips were applied over the incision. The incision was dressed. The patient was then awoken from general anesthesia and taken to recovery in stable condition. Counts were correct.
== END 2019-04-20 09:58 | disposition home or self-care (01) ==
LOC: M SDC 06:10 → M MSPAV 11:27 → M SDC 04-20 09:58
PROVIDERS: ATTEND Obstetrics & Gynecology
DX: D27.1 Benign neoplasm of left ovary (principal); N73.6 Female pelvic peritoneal adhesions (postinfective); E11.9 Type 2 diabetes mellitus without complications; I10 Essential (primary) hypertension; E78.5 Hyperlipidemia, unspecified; E03.9 Hypothyroidism, unspecified; F41.9 Anxiety disorder, unspecified; F32.9 Major depressive disorder, single episode, unspecified; F17.210 Nicotine dependence, cigarettes, uncomplicated; Z79.84 Long term (current) use of oral hypoglycemic drugs; Z79.899 Other long term (current) drug therapy
CPT/HCPCS: 36415; 58661; 85027; 86850; 86900; 86901; 88307; 96361; 96374; 96375; 96376; J0131; J0690; J1100; J1885; J2250; J2405; J3010

== ENCOUNTER 2019-04-23 23:37 | Inpatient (IN) | payer BC ==
[~2019-04-23] VITALS: Ht 157.5 cm; Wt 118.4 kg
[~2019-04-23 23:37] MED LIST changes: +ADDE20TA PO; +IBUP80TA PO; +LEVO50TA45 PO; -LIDOCAINE 1% MDV 20ML VIAL SQ PRN; -LR 1,000 ML IV ONE; +METF-954 PO; +OXYC1TAB23 PO
[2019-04-24] MEDS ORDERED: KETOROLAC 30 MG/ML VIAL (J1885) IV ONE (00:30)
[2019-04-24] MEDS ORDERED: NS 1,000 ML IV SCH (00:30)
[2019-04-24] MEDS ORDERED: ONDANSETRON 4MG/2ML VIAL (J2405) IV ONE ×2 (00:30→01:45)
[2019-04-24 00:46] LABS: BASO % 0.2 % (0.0-1.0); EOS # 0.1 10^3/uL (0.0-0.5); EOS % 1.3 % (0.0-3.0); HEMATOCRIT 40.1 % (36.0-47.0); HEMOGLOBIN 13.4 g/dl (12.0-15.5); LYMPH # 1.9 10^3/uL (1.5-5.0); LYMPH % 20.3 % (24.0-44.0); MEAN CORPUSCULAR HEMOGLOBIN 30.1 pg (27.0-33.0); MEAN CORPUSCULAR HGB CONC 33.4 g/dl (32.0-36.5); MEAN CORPUSCULAR VOLUME 90.1 fl (80.0-96.0); MONO # 0.4 10^3/uL (0.0-0.8); MONO % 4.8 % (0.0-5.0); NEUTROPHILS # 6.6 10^3/uL (1.5-8.5); NEUTROPHILS % 72.9 % (36.0-66.0); PLATELET COUNT, AUTOMATED 268 10^3/uL (150-450); RED BLOOD COUNT 4.45 10^6/uL (4.00-5.40); WHITE BLOOD COUNT 9.1 10^3/uL (4.0-10.0)
[2019-04-24] MEDS: GASTROGRAFIN SOLUTION 30ML PO SCH ×2 (00:46→00:51)
[2019-04-24 01:14] LABS: BLOOD UREA NITROGEN 14 MG/DL (7-18); CARBON DIOXIDE LEVEL 26 MEQ/L (21-32); CHLORIDE LEVEL 104 MEQ/L (98-107); CREATININE FOR GFR 0.79 MG/DL (0.55-1.30); GLOMERULAR FILTRATION RATE > 60.0 (>58); GLUCOSE, FASTING 122 MG/DL (70-100); POTASSIUM SERUM 4.1 MEQ/L (3.5-5.1); SODIUM LEVEL 139 MEQ/L (136-145)
[2019-04-24] MEDS ORDERED: ISOVUE-370 76% 100ML VIAL (Q9967) As Ordered ONE (01:54)
--- NOTE | 2019-04-24 02:29 | REP ---
Clinical: Abdominal pain with nausea and vomiting. Technique: Upright view of the chest with supine and upright views of the abdomen and pelvis. Findings: Frontal upright view of the chest is unremarkable and without free air below diaphragm to suspect pneumoperitoneum. Upright view of the abdomen demonstrates multiple air fluid levels with moderately distended loops of small bowel along with normal large bowel gas pattern. Findings are nonspecific and may represent enterocolitis as well as early/partial small bowel obstruction. No abnormal calcifications. No organomegaly. Skeletal structures are intact. Impression: Moderately distended small bowel with air-fluid levels. Differential diagnosis includes early/partial small bowel obstruction as well as enteritis. Electronically Signed by Elfego Valderrama MD 04/24/2019 02:21 A
[2019-04-24] MEDS ORDERED: METOCLOPRAMIDE INJ 10MG/2ML VIAL (J2765) IV ONE (03:30)
--- NOTE | 2019-04-24 03:39 | REPVR ---
PROCEDURE INFORMATION: Exam: CT Abdomen and Pelvis With Contrast Exam date and time: 04/24/2019 12:20 AM Clinical history: 38 years old, female; Abdominal pain; Generalized; Prior surgery; Surgery date: 3-7 days post-operative; Surgery type: Cyst removal ovarian & adhesions. ; Additional info: R/O sbo post op TECHNIQUE: Imaging protocol: Computed tomography of the abdomen and pelvis with intravenous contrast. Radiation optimization: All CT scans at this facility use at least one of these dose optimization techniques: automated exposure control; mA and/or kV adjustment per patient size (includes targeted exams where dose is matched to clinical indication); or iterative reconstruction. Contrast material: ISO; Contrast volume: 100 ml; Contrast route: AC; COMPARISON: CT ABD PELVIS W/O FOL BY WIT 11/07/2018 5:43 PM FINDINGS: Liver: Normal. No mass. Gallbladder and bile ducts: Normal. No calcified stones. No ductal dilation. Pancreas: There are multiple small cysts in the head and body of the pancreas. There are also calcifications in the pancreatic head. Calcifications suggest chronic pancreatitis. The pancreatic cysts appear to be septated. The largest cystic area in the head of the pancreas measures 2.1 cm in greatest diameter. Findings are stable from prior examination. Spleen: Normal. No splenomegaly. Adrenals: Normal. No mass. Kidneys and ureters: Multiple bilateral renal cysts, stable consistent with polycystic kidney disease. Stomach and bowel: Multiple dilated contrast filled small bowel loops measuring up to 4.5 cm with surrounding mesenteric edema and fluid between the dilated bowel loops.Feacalization of dilated distal small bowel. Transition point is seen in the mid abdomen (series 201 image 112). Decompressed distal small bowel loops. Findings represent small bowel obstruction. Moderate fecal loading in the colon. Appendix: No evidence of appendicitis. Intraperitoneal space: Unremarkable. No free air. No significant fluid collection. Vasculature: Mild atherosclerosis. Lymph nodes: Unremarkable. No enlarged lymph nodes. Bladder: Unremarkable as visualized. Reproductive: Status post hysterectomy. Bones/joints: Unremarkable. No acute fracture. Soft tissues: Postsurgical changes of anterior abdominal wall. IMPRESSION: 1. Multiple dilated contrast filled small bowel loops measuring up to 4.5 cm with surrounding mesenteric edema and fluid between the dilated bowel loops.Feacalization of dilated distal small bowel. Transition point is seen in the mid abdomen (series 201 image 112). Decompressed distal small bowel loops. Findings represent small bowel obstruction. 2. Moderate fecal loading in the colon. COMMENT: Consistent with the [place] [employer]'s Incidental Findings Committee Report (J Am Ren Radiol 2010): Unless the patient's specific circumstances suggest otherwise, any liver lesion 0.5 cm or less, any cystic kidney lesion less than 1.0 cm, and/or any adrenal lesion 1.0 cm or less not otherwise characterized in this report as possessing suspicious or indeterminate imaging features is/are highly likely to be benign and do not require follow-up imaging or biopsy. Electronically signed by: Hilaria Yost On 04/24/2019 03:38:57 AM
[2019-04-24] MEDS ORDERED: PERC5TAB12 PO (04:18)
[2019-04-24] MEDS ORDERED: IBUP1TAB7 PO (04:18)
[2019-04-24] MEDS ORDERED: LR 1,000 ML IV ONE (05:30)
[2019-04-24 06:10] VITALS: BP 134/83
--- NOTE | 2019-04-24 06:41 | HPE ---
DATE OF ADMISSION: 04/24/2019 This is a 38-year-old 2, para 2 female postop day number 7 status post exploratory laparotomy with left salpingo-oophorectomy who presents with three days of increasing diffuse abdominal pain. She began to vomit intermittently at least once a day. She has not had a bowel movement since surgery and tried multiple courses of laxatives. She finally presented to the ER due to increasing pain. MEDICAL HISTORY: 1. Diabetes. 2. Hypertension. 3. Hypothyroidism. MEDICATIONS: - bupropion XL 300 mg - Adderall 20 mg twice a day - Lasix 20 mg daily - ibuprofen 800 mg every 6 hours as needed for pain - levothyroxine 200 mcg daily - lisinopril 5 mg by mouth daily - metformin 850 mg twice a day - Percocet 5/325 one three times a day as needed - simvastatin 40 mg daily SURGICAL HISTORY: 1. section. 2. section. 3. Total abdominal hysterectomy. 4. February 12, 2019 diagnostic laparoscopy. 5. April 17, 2019 exploratory laparotomy with left salpingo-oophorectomy. ALLERGIES: None. SOCIAL HISTORY: Patient lives in [place]. She smokes cigarettes daily. She denies alcohol or illicit drug use. FAMILY HISTORY: Noncontributory. PHYSICAL EXAMINATION: Blood pressure 136/98, pulse 89, respiratory rate 20, temperature 97.6. Head and neck exam is normal. Heart regular rate and rhythm. Abdomen is distended, mildly tender. Decreased bowel sounds. Extremities nontender. LABS: White blood count 9.1, hemoglobin 13.4. IMAGING: Abdominal x-ray moderately distended loops of small bowel with air fluid levels. CT scan dilated loops of small bowel and transition at the mid abdomen level. Consistent with probable small bowel obstruction. ASSESSMENT: 38-year-old 2, para 2 female postop day 7 status post exploratory laparotomy with left salpingo-oophorectomy presents with onset of small bowel obstruction. PLAN: NG tube was placed for bowel decompression. The patient will be admitted for IV fluids and pain management. Consult general surgery for assistance in management of small bowel obstruction postoperatively.
[2019-04-24] MEDS ORDERED: GLUCOSE 4 GM CHEW TABLET PO PRN (07:15)
[2019-04-24] MEDS ORDERED: DEXTROSE 50% 50 ML SYRINGE IV PRN (07:15)
[2019-04-24] MEDS ORDERED: GLUCAGON FOR INJ 1 MG VIAL (J1610) SC PRN (07:15)
[2019-04-24] MEDS: LR 1,000 ML IV SCH ×3 (07:19→22:21)
[2019-04-24 08:00] VITALS: BP 123/75
[2019-04-24] MEDS: HumaLOG INSULIN (NovoLOG) PER UNIT SC SCH ×3 (08:24→17:30)
[2019-04-24] MEDS: KETOROLAC 30 MG/ML VIAL (J1885) IV PRN ×3 (08:24→22:21)
[2019-04-24] MEDS: CHLORASEPTIC SPRAY MT PRN ×3 (12:01→22:21)
[2019-04-24 16:00] VITALS: BP 118/68
[2019-04-24] MEDS: ONDANSETRON 4MG/2ML VIAL (J2405) IV PRN (19:08)
[2019-04-24 20:00] VITALS: BP 133/80
--- NOTE | 2019-04-24 23:11 | CR ---
DATE OF CONSULTATION: 04/24/2019 REASON FOR CONSULTATION: Small bowel obstruction. HISTORY OF PRESENT ILLNESS The patient is a 38-year-old female patient currently admitted to Dr. Perez with OB. She underwent a lower midline laparotomy a week ago with a left salpingo-oophorectomy and lysis of adhesions. She was kept in the hospital over the weekend, discharged postop day #3. She was doing well but she had not had any bowel movements. She claims she has not had a bowel movement since the day prior to that procedure. She is passing flatus. She has had increased abdominal distention, some nausea and vomiting over the past couple days and that is why she came in to the emergency room. Her labs are stable. Imaging shows likely a small bowel obstruction with transition in the mid abdomen consistent with small bowel obstruction. She already has an NG tube in place and she was admitted to OB. They have asked me to consult. Since placement of the NG her abdominal pain is almost completely resolved. It is putting out bilious drainage and no more nausea or vomiting. She did not have any fevers. She has had a few previous abdominal surgeries, but they were all below the umbilicus with a couple c-sections and a hysterectomy and this salpingo-oophorectomy. PAST MEDICAL HISTORY Diabetes, hypertension, hypothyroidism. PAST SURGICAL HISTORY Two C-sections, a total hysterectomy, diagnostic laparoscopy and laparotomy with a left salpingo-oophorectomy. ALLERGIES: None. HOME MEDICATIONS: Please see medical record. FAMILY HISTORY: Noncontributory. SOCIAL HISTORY: Smokes pack a day. Denies drug or alcohol abuse. REVIEW OF SYSTEMS: Pertinent positive and negatives as stated in HPI. PHYSICAL EXAMINATION General: Alert and oriented times three. No acute distress. Vitals: Temperature 97.4, pulse 79, respiration 20, blood pressure 123/75, pulse ox 95% room air. HEENT: Pupils equal round, react to light and accommodation. Heart: S1, S2 regular rate and rhythm. Lungs: Clear to auscultation bilaterally. Abdomen: Soft and nondistended. Mild tenderness diffusely. No rebounding or guarding. No signs of any ventral hernias. Extremities: No clubbing, cyanosis or edema. LABORATORY DATA White count 91, hemoglobin 13.4, platelets 268. IMAGING STUDIES CT abdomen and pelvis shows multiple dilated loops of small bowel up to 4.5 cm with surrounding mesenteric edema, fluid between the dilated bowel loops. Fecalization of dilated distal small bowel. Transition point the mid abdomen. Decompressed distal small bowel loops. Findings represent a small bowel obstruction. ASSESSMENT/PLAN The patient a 38-year-old female postop day #7 from a lower midline laparotomy with left salpingo-oophorectomy. She is not claims she has not had a bowel movement in about 8 days. She is showing signs of bowel obstruction now with a transition in the mid abdomen. Her vitals and physical exam all stable. There is no indication for immediate surgical intervention. I will continue with NG tube decompression, IV fluids, ambulation. If she does not improve and have any signs of bowel function by Saturday, will plan for laparoscopic lysis of adhesions and release of this bowel obstruction. That will give time for this to resolve on its own and if that is unsuccessful at the very least it will decompress her enough that I am able to perform this laparoscopically. She understands the plan and I will continue to follow her closely over the weekend.
[2019-04-25] VITALS: BP 120/73
[2019-04-25] MEDS ORDERED: LACTATED RINGER'S 1000 ML IV ONE (00:45)
[2019-04-25] MEDS: KETOROLAC 30 MG/ML VIAL (J1885) IV PRN ×4 (04:54→23:42)
[2019-04-25] MEDS: HumaLOG INSULIN (NovoLOG) PER UNIT SC SCH ×3 (07:30→17:26)
[2019-04-25 07:44] LABS: HEMATOCRIT 35.6 % (36.0-47.0); HEMOGLOBIN 11.6 g/dl (12.0-15.5); MEAN CORPUSCULAR HEMOGLOBIN 28.9 pg (27.0-33.0); MEAN CORPUSCULAR HGB CONC 32.6 g/dl (32.0-36.5); MEAN CORPUSCULAR VOLUME 88.6 fl (80.0-96.0); PLATELET COUNT, AUTOMATED 262 10^3/uL (150-450); RED BLOOD COUNT 4.02 10^6/uL (4.00-5.40); WHITE BLOOD COUNT 7.1 10^3/uL (4.0-10.0)
[2019-04-25 08:00] VITALS: BP 134/77
[2019-04-25 08:12] LABS: ALBUMIN 2.7 GM/DL (3.2-5.2); ALT/SGPT 20 U/L (12-78); BILIRUBIN,TOTAL 0.3 MG/DL (0.2-1.0); BLOOD UREA NITROGEN 16 MG/DL (7-18); CALCIUM LEVEL 8.2 MG/DL (8.5-10.1); CARBON DIOXIDE LEVEL 31 MEQ/L (21-32); CHLORIDE LEVEL 104 MEQ/L (98-107); CREATININE FOR GFR 0.82 MG/DL (0.55-1.30); GLOMERULAR FILTRATION RATE > 60.0 (>58); GLUCOSE, FASTING 88 MG/DL (70-100); POTASSIUM SERUM 3.9 MEQ/L (3.5-5.1); SODIUM LEVEL 139 MEQ/L (136-145)
[2019-04-25] MEDS ORDERED: NS 1,000 ML IV ONE (09:00)
[2019-04-25] MEDS ORDERED: INFLUENZA QUADRIVALENT PF VACCINE 0.5ML SYRINGE (90686) IM ONE (09:00)
[2019-04-25] MEDS: LR 1,000 ML IV SCH ×2 (09:26→16:30)
--- NOTE | 2019-04-25 09:55 | IPNPDOC ---
Text Note Date of Service The patient was seen on 04/25/19. NOTE No acute events overnight. She is tolerating the NGT, and feels much better t chiara. She has been ambulating, and has had some flatus. No BM yet. VSSAF NAD abd - soft, nt, nd, NG with bilious output still labs - below A) 38y/o female with partial vs. complete SBO likely secondary to adhesions P) sips and chips NGT to LIS ambulate plan to re-evalaute in the am, and if there is no improvement, then I will offer her a laparoscopy Thompson Petersen DO VS,Fishbone, I+O VS, Fishbone, I+O Laboratory Tests 04/25/19 06:51 Red Blood Count 4.02, Mean Corpuscular Volume 88.6, Mean Corpuscular Hemoglobin 28.9, Mean Corpuscular Hemoglobin Concent 32.6, Red Cell Distribution Width 13.5, Calcium Level 8.2 L, Aspartate Amino Transf (AST/SGOT) 15, Alanine Aminotransferase (ALT/SGPT) 20, Alkaline Phosphatase 65, Total Bilirubin 0.3, Total Protein 6.0 L, Albumin 2.7 L Vital Signs Date Time Temp Pulse Resp B/P (MAP) Pulse Ox O2 Delivery O2 Flow Rate FiO2 04/25/19 00:00 97.4 85 20 120/73 (89) 95 04/24/19 05:27 Room Air I&O- Last 24 Hours up to 6 AM 04/25/19 06:00 Intake Total 3540 ml Output Total 2350 ml Balance 1190 ml OSWALDO PETERSEN DO Apr 25, 2019 09:55
[2019-04-25 16:00] VITALS: BP 139/71
[2019-04-25] MEDS: D5W/0.45% SODIUM CHLORIDE 1,000 ML IV SCH (19:43)
[2019-04-25 21:00] VITALS: BP 123/71
[2019-04-26] VITALS (13 sets, daily range): BP systolic 122–162; BP diastolic 70–98; O2SAT 94–95
[2019-04-26] MEDS: D5W/0.45% SODIUM CHLORIDE 1,000 ML IV SCH ×3 (01:54→14:03)
[2019-04-26] MEDS: KETOROLAC 30 MG/ML VIAL (J1885) IV PRN ×2 (06:30→23:55)
[2019-04-26 09:09] LABS: HEMATOCRIT 36.2 % (36.0-47.0); MEAN CORPUSCULAR HEMOGLOBIN 29.9 pg (27.0-33.0); MEAN CORPUSCULAR HGB CONC 33.1 g/dl (32.0-36.5); MEAN CORPUSCULAR VOLUME 90.3 fl (80.0-96.0); PLATELET COUNT, AUTOMATED 260 10^3/uL (150-450); RED BLOOD COUNT 4.01 10^6/uL (4.00-5.40); WHITE BLOOD COUNT 6.8 10^3/uL (4.0-10.0)
[2019-04-26 09:37] LABS: ALBUMIN 2.9 GM/DL (3.2-5.2); ALT/SGPT 20 U/L (12-78); BILIRUBIN,TOTAL 0.2 MG/DL (0.2-1.0); BLOOD UREA NITROGEN 9 MG/DL (7-18); CALCIUM LEVEL 7.9 MG/DL (8.5-10.1); CARBON DIOXIDE LEVEL 28 MEQ/L (21-32); CHLORIDE LEVEL 105 MEQ/L (98-107); GLOMERULAR FILTRATION RATE > 60.0 (>58); GLUCOSE, FASTING 109 MG/DL (70-100); POTASSIUM SERUM 3.9 MEQ/L (3.5-5.1); SODIUM LEVEL 140 MEQ/L (136-145); TOTAL PROTEIN 5.7 GM/DL (6.4-8.2)
[2019-04-26] MEDS: HumaLOG INSULIN (NovoLOG) PER UNIT SC SCH ×3 (09:38→18:57)
--- NOTE | 2019-04-26 09:40 | IPNPDOC ---
Text Note Date of Service The patient was seen on 04/26/19. NOTE No acute events overnight. She has had some flatus. No BM yet. VSSAF NAD abd - soft, slight tenderness suprapubic only, nd, NG with bilious output still labs - below A) 38y/o female with partial vs. complete SBO likely secondary to adhesions P) NGT to LIS ambulate I discussed her last surgery with Dr. Bhakta this am, and he says all of her adhesions were below the umbilicus. I offered her a robotic MARIANA this afternoon, vs. waiting a couple more days to see if she opens up. She understands the risks involved, and agreed to proceed with surgery today. Consent was signed, and the procedure is scheduled for this afternoon. Thompson Petersen DO VS,Latrell, I+O VS, Latrell, I+O Laboratory Tests 04/26/19 08:49 Red Blood Count 4.01, Mean Corpuscular Volume 90.3, Mean Corpuscular Hemoglobin 29.9, Mean Corpuscular Hemoglobin Concent 33.1, Red Cell Distribution Width 13.2 Vital Signs Date Time Temp Pulse Resp B/P (MAP) Pulse Ox O2 Delivery O2 Flow Rate FiO2 04/26/19 08:04 98.4 68 18 123/81 (95) 99 04/24/19 05:27 Room Air I&O- Last 24 Hours up to 6 AM 04/26/19 05:59 Intake Total 2635 ml Output Total 4475 ml Balance -1840 ml OSWALDO PETERSEN DO Apr 26, 2019 09:40
[2019-04-26] MEDS ORDERED: BUPIVACAINE/EPIN 0.25% 30 ML VIAL ONE (15:00)
[2019-04-26] MEDS ORDERED: BUPIVACAINE/EPIN 0.25% 30 ML VIAL As Ordered ONE (15:01)
[2019-04-26] MEDS ORDERED: dexameTHASONE 4 MG/ML 1ML VIAL (J1100) As Ordered ONE (15:26)
[2019-04-26] MEDS ORDERED: LIDOCAINE 2% INJ 100 MG/5 ML SDV (FOR ANES.) As Ordered ONE (15:26)
[2019-04-26] MEDS ORDERED: fentaNYL 100 MCG/2 ML INJECTION (J3010) As Ordered ONE ×2 (15:26→17:41)
[2019-04-26] MEDS ORDERED: MIDAZOLAM INJ 2 MG/2 ML VIAL (J2250) As Ordered ONE (15:26)
[2019-04-26] MEDS ORDERED: ONDANSETRON 4MG/2ML VIAL (J2405) As Ordered ONE ×2 (15:26→17:57)
[2019-04-26] MEDS ORDERED: ROCURONIUM BROMIDE 50 MG/5 ML VIAL As Ordered ONE ×2 (15:26→15:27)
[2019-04-26] MEDS ORDERED: PROPOFOL 200 MG/20 ML VIAL As Ordered ONE (15:26)
[2019-04-26] MEDS ORDERED: LABETALOL HCL 100 MG/20 ML VIAL As Ordered ONE (15:28)
[2019-04-26] MEDS ORDERED: SUGAMMADEX SODIUM 500 MG/5 ML VIAL (BRIDION) As Ordered ONE (15:32)
[2019-04-26] MEDS ORDERED: ceFAZolin 2 GM/D5W 50 ML IV BAG (J0690 PER 500MG) As Ordered ONE (16:27)
[2019-04-26] MEDS ORDERED: HYDROmorphone HCL 2 MG/ML 1ML VIAL (J1170) As Ordered ONE (16:31)
[2019-04-26] MEDS ORDERED: ACETAMINOPHEN 1000MG 100ML IV BTL (OFIRMEV) (J0131 PER 10MG) As Ordered ONE (16:35)
[2019-04-26] MEDS ORDERED: GLYCOPYRROLATE INJ 0.2 MG/ML 2 ML VIAL As Ordered ONE (16:49)
[2019-04-26] MEDS ORDERED: KETOROLAC 60 MG/2 ML VIAL (J1885) As Ordered ONE (17:25)
[2019-04-26] MEDS: fentaNYL 100 MCG/2 ML INJECTION (J3010) IV PRN ×4 (17:42→18:01)
[2019-04-26] MEDS ORDERED: ONDANSETRON 4MG/2ML VIAL (J2405) IV PRN (18:00)
[2019-04-26] MEDS ORDERED: LR 1,000 ML IV SCH (18:00)
[2019-04-26] MEDS ORDERED: oxyCODONE 5MG TAB As Ordered ONE ×2 (18:00→18:30)
[2019-04-26] MEDS: oxyCODONE 5MG TAB PO PRN ×2 (18:04→18:32)
[2019-04-26] MEDS: MORPHINE 4 MG/ML 1ML VIAL/SYRINGE (J2270) IV PRN (20:28)
[2019-04-27] VITALS (12 sets, daily range): BP systolic 98–135; BP diastolic 62–77; O2SAT 93–97
[2019-04-27] MEDS: D5W/0.45% SODIUM CHLORIDE 1,000 ML IV SCH (00:36)
[2019-04-27] MEDS: MORPHINE 4 MG/ML 1ML VIAL/SYRINGE (J2270) IV PRN (03:07)
[2019-04-27] MEDS: KETOROLAC 30 MG/ML VIAL (J1885) IV PRN ×3 (06:16→18:38)
--- NOTE | 2019-04-27 06:31 | IPNPDOC ---
Text Note Date of Service The patient was seen on 04/27/19. NOTE No acute events overnight. No flatus since surgery. She is tolerating the NGT clamped with liquid diet for 12 hours. No nausea or emesis. VSSAF NAD abd - soft, TTP appropriate, nd labs - below A) 38y/o female with partial vs. complete SBO secondary to adhesions s/p RA MARIANA with SBR P) dc ngt ambulate flq diet monitor labs await return of bowel function if she is passing flatus, then diet can be advanced to regular. Thompson Petersen DO VS,Fishbone, I+O VS, Fishbone, I+O Laboratory Tests 04/26/19 08:49 Red Blood Count 4.01, Mean Corpuscular Volume 90.3, Mean Corpuscular Hemoglobin 29.9, Mean Corpuscular Hemoglobin Concent 33.1, Red Cell Distribution Width 13.2, Calcium Level 7.9 L, Aspartate Amino Transf (AST/SGOT) 16, Alanine Aminotransferase (ALT/SGPT) 20, Alkaline Phosphatase 65, Total Bilirubin 0.2, Total Protein 5.7 L, Albumin 2.9 L Vital Signs Date Time Temp Pulse Resp B/P (MAP) Pulse Ox O2 Delivery O2 Flow Rate FiO2 04/27/19 04:00 2.0 04/27/19 04:00 97.3 73 16 135/64 (87) 95 04/27/19 04:00 Nasal Cannula I&O- Last 24 Hours up to 6 AM 04/27/19 06:00 Intake Total 5245 ml Output Total 2965 ml Balance 2280 ml OSWALDO PETERSEN DO Apr 27, 2019 06:31
[2019-04-27 07:32] LABS: HEMATOCRIT 34.5 % (36.0-47.0); HEMOGLOBIN 11.7 g/dl (12.0-15.5); MEAN CORPUSCULAR HEMOGLOBIN 30.8 pg (27.0-33.0); MEAN CORPUSCULAR HGB CONC 33.9 g/dl (32.0-36.5); MEAN CORPUSCULAR VOLUME 90.8 fl (80.0-96.0); PLATELET COUNT, AUTOMATED 258 10^3/uL (150-450); WHITE BLOOD COUNT 8.2 10^3/uL (4.0-10.0)
--- NOTE | 2019-04-27 07:41 | RO ---
DATE OF PROCEDURE: 04/26/2019 PREOPERATIVE DIAGNOSIS: Small bowel obstruction. POSTOPERATIVE DIAGNOSIS: Small bowel obstruction. PROCEDURE: Robotic lysis of adhesions with mini laparotomy and small bowel resection. SURGEON: Dr. Aydin Petersen PIGSKIN TRIMMER: None. ANESTHESIA: General. COMPLICATIONS: None. ESTIMATED BLOOD LOSS: 10. INDICATIONS FOR PROCEDURE: The patient is a 38-year-old female who presented to the emergency room with abdominal pain. She has not had a bowel movement in about [address] is positive for small bowel obstruction with transition in the lower midabdomen. Recommendation was to proceed with robotic repair. Risks and benefits of the procedure, not limited to, but including bleeding, infection, hernia formation, damage to surrounding structures and need for further surgery were discussed in detail with the patient, informed consent was obtained and the procedure was planned. DESCRIPTION OF PROCEDURE: The patient was brought back to operating room seven after sufficient sedation and the abdomen sterilely prepped and draped. Next, a time out was done confirm proper patient and proper procedure. Following that, 8 mm incision made in the left upper quadrant and Veress needle inserted and the abdomen was insufflated to 15 mmHg. The Veress needle was removed. An 8 mm robotic port was used to gain access to the abdomen. Once the abdomen was entered, two more 8 mm ports were placed, one subxiphoid and one in the right upper quadrant. The robot was then connected to the ports. From the console, I was able to take down multiple adhesions for over an hour. The entire omentum was adhesed densely to the lower abdominal wall through her previous incision from the midline down. The omentum was also adhered to the right lower quadrant and left lower quadrant and all along the descending and sigmoid colon. This was all dissected free robotically. The omentum was dissected off, however, there was one area where loops of small bowel and omentum were all densely adhered together right around the lower midline. I was able to continue to free up the anterior abdominal wall all the way down into the pelvis. Loops of small bowel in the pelvis were also freed up from her recent surgery. Once all that was completed, I undocked the robot and made a minilaparotomy inferior to the umbilicus and brought out the chunk of small bowel that was densely adhered to itself. After doing do, I found the healthy ends proximal and distal to this area and brought those together and sutured them together with a #3-0 silk suture. I created a [id number] anastomosis with a JANAE 75 blue load stapler. The mesentery was then taken down with the Enseal. The specimen was removed. The mesentery was brought back together with an #0 Vicryl suture. The anastomosis was placed back inside the abdomen. The fascia was brought back together with #1 PDS looped. The skin was brought back together with lea. The port sites were closed with lea. The abdomen was then cleaned and dried, 4x4 and tape were applied, thus ending the procedure.
[2019-04-27 08:03] LABS: ALBUMIN 2.7 GM/DL (3.2-5.2); ALT/SGPT 19 U/L (12-78); BILIRUBIN,TOTAL 0.2 MG/DL (0.2-1.0); BLOOD UREA NITROGEN 6 MG/DL (7-18); CALCIUM LEVEL 7.7 MG/DL (8.5-10.1); CARBON DIOXIDE LEVEL 28 MEQ/L (21-32); CHLORIDE LEVEL 106 MEQ/L (98-107); CREATININE FOR GFR 0.74 MG/DL (0.55-1.30); GLOMERULAR FILTRATION RATE > 60.0 (>58); GLUCOSE, FASTING 114 MG/DL (70-100); POTASSIUM SERUM 3.6 MEQ/L (3.5-5.1); SODIUM LEVEL 140 MEQ/L (136-145)
[2019-04-27] MEDS: HumaLOG INSULIN (NovoLOG) PER UNIT SC SCH ×3 (08:27→17:30)
[2019-04-27] MEDS: NORCO, ANEXSIA 5/325MG TABLET (HYDROcodone/ACETAMINOPHEN) PO PRN ×3 (08:28→20:55)
[2019-04-27] MEDS: NYSTATIN 100,000 UNITS/GM TOPICAL PWD 15 GM TOP SCH ×2 (12:44→20:55)
[2019-04-27] MEDS: SIMETHICONE 80 MG CHEW TAB PO PRN (18:32)
[2019-04-27] MEDS: KCL 20MEQ IN D5/0.45NS 1000ML 1,000 ML IV SCH (18:32)
[2019-04-28] VITALS (7 sets, daily range): BP systolic 112–141; BP diastolic 66–86; O2SAT 92–96
[2019-04-28] MEDS: KETOROLAC 30 MG/ML VIAL (J1885) IV PRN ×4 (00:37→19:27)
[2019-04-28] MEDS: KCL 20MEQ IN D5/0.45NS 1000ML 1,000 ML IV SCH ×3 (00:44→17:30)
[2019-04-28] MEDS: SIMETHICONE 80 MG CHEW TAB PO PRN ×3 (00:44→14:42)
[2019-04-28] MEDS: NORCO, ANEXSIA 5/325MG TABLET (HYDROcodone/ACETAMINOPHEN) PO PRN ×5 (03:27→21:02)
[2019-04-28 06:43] LABS: HEMATOCRIT 33.5 % (36.0-47.0); HEMOGLOBIN 11.2 g/dl (12.0-15.5); MEAN CORPUSCULAR HEMOGLOBIN 30.7 pg (27.0-33.0); MEAN CORPUSCULAR HGB CONC 33.4 g/dl (32.0-36.5); MEAN CORPUSCULAR VOLUME 91.8 fl (80.0-96.0); PLATELET COUNT, AUTOMATED 252 10^3/uL (150-450); RED BLOOD COUNT 3.65 10^6/uL (4.00-5.40); WHITE BLOOD COUNT 6.9 10^3/uL (4.0-10.0)
[2019-04-28 07:04] LABS: ALBUMIN 2.6 GM/DL (3.2-5.2); ALT/SGPT 30 U/L (12-78); BILIRUBIN,TOTAL 0.2 MG/DL (0.2-1.0); BLOOD UREA NITROGEN 6 MG/DL (7-18); CALCIUM LEVEL 7.5 MG/DL (8.5-10.1); CARBON DIOXIDE LEVEL 27 MEQ/L (21-32); CHLORIDE LEVEL 107 MEQ/L (98-107); CREATININE FOR GFR 0.69 MG/DL (0.55-1.30); GLOMERULAR FILTRATION RATE > 60.0 (>58); GLUCOSE, FASTING 115 MG/DL (70-100); SODIUM LEVEL 140 MEQ/L (136-145); TOTAL PROTEIN 5.2 GM/DL (6.4-8.2)
[2019-04-28] MEDS: HumaLOG INSULIN (NovoLOG) PER UNIT SC SCH ×3 (09:10→17:30)
[2019-04-28] MEDS: NYSTATIN 100,000 UNITS/GM TOPICAL PWD 15 GM TOP SCH ×2 (09:10→20:27)
--- NOTE | 2019-04-28 14:17 | IPNPDOC ---
Text Note Date of Service The patient was seen on 04/28/19. NOTE No acute events overnight. She is slightly distended this am, and did not pass any flatus yesterday. However, she is now passing gas and feels much better. No problems with nausea or emesis today. VSSAF NAD abd - soft, TTP appropriate, slightly distended labs - below A) 38y/o female with partial vs. complete SBO secondary to adhesions s/p RA MARIANA with SBR P) ambulate reg diet monitor labs d/c home after a BM Thompson Petersen DO VS,Fishbone, I+O VS, Fishbone, I+O Laboratory Tests 04/28/19 06:28 Red Blood Count 3.65 L, Mean Corpuscular Volume 91.8, Mean Corpuscular Hemoglobin 30.7, Mean Corpuscular Hemoglobin Concent 33.4, Red Cell Distribution Width 14.1, Calcium Level 7.5 L, Aspartate Amino Transf (AST/SGOT) 27, Alanine Aminotransferase (ALT/SGPT) 30, Alkaline Phosphatase 63, Total Bilirubin 0.2, Total Protein 5.2 L, Albumin 2.6 L Vital Signs Date Time Temp Pulse Resp B/P (MAP) Pulse Ox O2 Delivery O2 Flow Rate FiO2 04/28/19 09:10 18 04/28/19 04:00 92 Room Air 04/28/19 04:00 97.1 71 122/81 (95) 04/27/19 08:58 2.0 I&O- Last 24 Hours up to 6 AM 04/28/19 06:00 Intake Total 1965 ml Output Total 1600 ml Balance 365 ml OSWALDO PETERSEN DO Apr 28, 2019 14:17
[2019-04-28] MEDS ORDERED: INFLUENZA QUADRIVALENT PF VACCINE 0.5ML SYRINGE (90686) IM ONE (16:30)
[2019-04-28] MEDS: ONDANSETRON 4MG/2ML VIAL (J2405) IV PRN (17:36)
[2019-04-29] MEDS: ONDANSETRON 4MG/2ML VIAL (J2405) IV PRN ×2 (00:29→16:55)
[2019-04-29] MEDS: KETOROLAC 30 MG/ML VIAL (J1885) IV PRN (01:50)
[2019-04-29] MEDS: KCL 20MEQ IN D5/0.45NS 1000ML 1,000 ML IV SCH (01:50)
[2019-04-29 04:00] VITALS: BP 108/62
[2019-04-29] MEDS: NORCO, ANEXSIA 5/325MG TABLET (HYDROcodone/ACETAMINOPHEN) PO PRN ×3 (04:19→20:34)
[2019-04-29] MEDS: HumaLOG INSULIN (NovoLOG) PER UNIT SC SCH ×3 (07:30→16:55)
--- NOTE | 2019-04-29 07:33 | IPNPDOC ---
Text Note Date of Service The patient was seen on 04/29/19. NOTE No acute events overnight. She is slightly less distended this am, and is passing more flatus than yesterday. However, she did have some emesis last evening after eating some fried food. No nausea or emesis today, and she says she feels good. VSSAF NAD abd - soft, slighty tender, no rebound or guarding, slightly less distended than yesterday A) 38y/o female with partial vs. complete SBO secondary to adhesions s/p RA MARIANA with SBR P) ambulate reg diet monitor labs d/c home after a BM Thompson Petersen DO VS,Fishbone, I+O VS, Fishbone, I+O Vital Signs Date Time Temp Pulse Resp B/P (MAP) Pulse Ox O2 Delivery O2 Flow Rate FiO2 04/29/19 04:49 18 04/29/19 04:00 96.8 78 108/62 (77) 98 04/28/19 10:00 Room Air 04/27/19 08:58 2.0 I&O- Last 24 Hours up to 6 AM 04/29/19 05:59 Intake Total 2085 ml Output Total 1175 ml Balance 910 ml OSWALDO PETERSEN DO Apr 29, 2019 07:33
[2019-04-29 08:56] VITALS: BP 124/80
[2019-04-29 08:59] VITALS: O2SAT 95
[2019-04-29] MEDS: NYSTATIN 100,000 UNITS/GM TOPICAL PWD 15 GM TOP SCH ×2 (09:01→20:35)
[2019-04-29 16:00] VITALS: BP 120/78
[2019-04-29] MEDS: SIMETHICONE 80 MG CHEW TAB PO PRN (16:55)
[2019-04-29 20:00] VITALS: BP 131/78
[2019-04-30] VITALS: BP 115/64
[2019-04-30] MEDS: NORCO, ANEXSIA 5/325MG TABLET (HYDROcodone/ACETAMINOPHEN) PO PRN ×2 (05:07→16:18)
[2019-04-30] MEDS: HumaLOG INSULIN (NovoLOG) PER UNIT SC SCH ×3 (07:30→17:10)
[2019-04-30 08:00] VITALS: BP 131/84
[2019-04-30] MEDS ORDERED: ONDANSETRON 4 MG ORAL DISINTEGRATING TAB (Q0162 PER 1MG) PO PRN (08:00)
--- NOTE | 2019-04-30 08:42 | IPNPDOC ---
Text Note Date of Service The patient was seen on 04/30/19. NOTE No acute events overnight. Slightly less distended this am, and is passing more flatus than yesterday. No BM yet. VSSAF NAD abd - soft, slighty tender, no rebound or guarding, slightly less distended than yesterday A) 38y/o female with partial vs. complete SBO secondary to adhesions s/p RA MARIANA with SBR P) ambulate reg diet monitor labs bentyl miralax d/c home after a BM Thompson Petersen DO VS,Fishbone, I+O VS, Fishbone, I+O Vital Signs Date Time Temp Pulse Resp B/P (MAP) Pulse Ox O2 Delivery O2 Flow Rate FiO2 04/30/19 05:07 18 04/30/19 04:00 99.0 04/30/19 00:00 81 115/64 (81) 98 04/29/19 08:59 Room Air 04/27/19 08:58 2.0 I&O- Last 24 Hours up to 6 AM 04/30/19 06:00 Intake Total 1830 ml Output Total 1175 ml Balance 655 ml OSWALDO PETERSEN DO Apr 30, 2019 08:42
[2019-04-30] MEDS: NYSTATIN 100,000 UNITS/GM TOPICAL PWD 15 GM TOP SCH ×2 (09:00→21:29)
[2019-04-30] MEDS: MIRALAX *UNIT DOSE* 17GM PACKET PO SCH ×2 (09:11→21:28)
[2019-04-30] MEDS: DOCUSATE SODIUM 100 MG CAP PO SCH ×2 (09:11→21:28)
[2019-04-30] MEDS: metFORMIN 850 MG TAB PO SCH ×2 (09:12→17:11)
[2019-04-30] MEDS: buPROPion **XL** TABLET 150MG (WELLBUTRIN XL) PO SCH (09:12)
[2019-04-30] MEDS: DICYCLOMINE 10 MG CAP PO SCH ×3 (11:42→21:28)
[2019-04-30 16:19] VITALS: BP 141/83
[2019-04-30 20:00] VITALS: BP 113/60
[2019-04-30] MEDS ORDERED: MAGNESIUM CITRATE 300 ML BTL PO ONE (21:00)
[2019-05-01] VITALS: BP 119/75
[2019-05-01] MEDS: NORCO, ANEXSIA 5/325MG TABLET (HYDROcodone/ACETAMINOPHEN) PO PRN ×2 (01:00→08:06)
[2019-05-01] MEDS: HumaLOG INSULIN (NovoLOG) PER UNIT SC SCH (07:30)
[2019-05-01 08:00] VITALS: BP 112/71
[2019-05-01] MEDS: metFORMIN 850 MG TAB PO SCH (08:06)
[2019-05-01 08:36] VITALS: BP 119/75
[2019-05-01] MEDS: MIRALAX *UNIT DOSE* 17GM PACKET PO SCH (09:00)
[2019-05-01] MEDS: DOCUSATE SODIUM 100 MG CAP PO SCH (09:39)
[2019-05-01] MEDS: DICYCLOMINE 10 MG CAP PO SCH (09:39)
[2019-05-01] MEDS: buPROPion **XL** TABLET 150MG (WELLBUTRIN XL) PO SCH (09:39)
[2019-05-01] MEDS: NYSTATIN 100,000 UNITS/GM TOPICAL PWD 15 GM TOP SCH (09:40)
[2019-05-01] MEDS ORDERED: MAGNESIUM CITRATE 300 ML BTL PO ONE (11:00)
--- NOTE | 2019-05-01 11:22 | IPNPDOC ---
Text Note Date of Service The patient was seen on 05/01/19. NOTE No acute events overnight. Slightly less distended this am, and is passing more flatus than yesterday. She did respond well to the mag citrate. No BM yet. VSSAF NAD abd - soft, slighty tender, no rebound or guarding, slightly less distended than yesterday A) 38y/o female with partial vs. complete SBO secondary to adhesions s/p RA MARIANA with SBR P) ambulate reg diet bentyl miralax will add a whole bottle of mag citrate this am, and then dc home after a BM. Thompson Petersen DO VS,Fishbone, I+O VS, Fishbone, I+O Vital Signs Date Time Temp Pulse Resp B/P (MAP) Pulse Ox O2 Delivery O2 Flow Rate FiO2 05/01/19 08:36 99.9 82 20 119/75 94 04/29/19 08:59 Room Air 04/27/19 08:58 2.0 I&O- Last 24 Hours up to 6 AM 05/01/19 06:00 Intake Total 600 ml Output Total 750 ml Balance -150 ml OSWALDO PETERSEN DO May 01, 2019 11:22
--- NOTE | 2019-05-04 07:17 | DSES ---
DATE OF ADMISSION: 04/24/2019 DATE OF DISCHARGE: 05/01/2019 DISCHARGE DIAGNOSIS: Small bowel obstruction CONDITION ON DISCHARGE: Stable. CONSULTS WHILE IN HOSPITAL: General surgery, Dr. Petersen PROCEDURES PERFORMED WHILE IN HOSPITAL: Robotic lysis of adhesions was minilaparotomy and small bowel resection. DISCHARGE MEDICATIONS: - ibuprofen - Percocet HISTORY AND HOSPITAL COURSE: Ms. Sena is a 38-year-old 2, para 2 status post day 7 from exploratory laparotomy and left salpingo-oophorectomy, who presented with three days of increasing diffuse abdominal pain. She began to vomit intermittently, and also reported no bowel movements since surgery. She tried multiple laxatives and presented to the emergency department at which time she was diagnosed with a small bowel obstruction. She was managed initially conservatively. NG tube was placed. On April 26, a decision was made to proceed with laparoscopic lysis of adhesions and alleviation of small bowel secondary to nonresolution of obstruction, and she underwent uncomplicated lysis of adhesions with small-bowel resection. Surgery demonstrated extensive adhesive disease and was uncomplicated. Estimated blood loss was 10 mL. She did well postoperatively and remained stable. By postoperative day 5, she had met all discharge criteria and she began to have bowel movements. Her pain had resolved after surgery and was tolerating p.o. and was discharged home in stable condition with followup in one week. DISCHARGE INSTRUCTIONS: 1. She was instructed to follow up in one week. 2. I limited her lifting to 20 pounds.
== END 2019-05-01 12:30 | disposition home or self-care (01) | DRG 221 ==
LOC: M ED 23:37 → M ED INP 04-24 04:32 → M PED 04-24 07:02
PROVIDERS: ADMIT Specialist; ATTEND Specialist
PROC: 0DB84ZZ Excision of Small Intestine, Percutaneous Endoscopic Approach (ICD-10-PCS; 2019-04-26)
PROC: 8E0W4CZ Robotic Assisted Procedure of Trunk Region, Percutaneous Endoscopic Approach (ICD-10-PCS; 2019-04-26)
PROC: 0DNU4ZZ Release Omentum, Percutaneous Endoscopic Approach (ICD-10-PCS; principal; 2019-04-26 13:00)
DX: K56.52 Intestinal adhesions [bands] with complete obstruction (principal); I10 Essential (primary) hypertension; F17.210 Nicotine dependence, cigarettes, uncomplicated; E11.9 Type 2 diabetes mellitus without complications; Y83.6 Removal of other organ (partial) (total) as the cause of abnormal reaction of the patient, or of later complication, without mention of misadventure at the time of the procedure; E03.9 Hypothyroidism, unspecified; Z79.84 Long term (current) use of oral hypoglycemic drugs; Z79.899 Other long term (current) drug therapy

== ENCOUNTER → 2019-07-01 | Outpatient (REF) | payer BC ==
[~2019-07-01] MED LIST changes: +IBUP1TAB7 PO; +PERC5TAB12 PO; -SIMV40TA2 PO; +SIMV40TA20 PO
[2019-07-01 14:29] LABS: OSMOLALITY URINE 912 MOSM/KG (500-800)
[2019-07-01 15:48] LABS: SODIUM,RANDOM URINE 105 MEQ/L
[2019-07-01 16:07] LABS: ALBUMIN 3.7 GM/DL (3.2-5.2); ALT/SGPT 23 U/L (12-78); BILIRUBIN,DIRECT < 0.1 MG/DL (0.0-0.2); BILIRUBIN,TOTAL 0.2 MG/DL (0.2-1.0); TOTAL PROTEIN 7.1 GM/DL (6.4-8.2)
== END ==
LOC: M LAB REF 13:28
PROVIDERS: ATTEND Internal Medicine Nephrology
DX: Q61.2 Polycystic kidney, adult type (principal)

== ENCOUNTER → 2019-08-19 | Outpatient (CLI) | payer BC ==
[~2019-08-19] MED LIST changes: -BUPR300T34 PO; +BUPR300T92 PO
== END ==
LOC: M WHC 11:13
PROVIDERS: ATTEND Obstetrics & Gynecology
DX: Z12.31 Encounter for screening mammogram for malignant neoplasm of breast (principal); Z53.9 Procedure and treatment not carried out, unspecified reason

== ENCOUNTER → 2019-08-26 | Outpatient (CLI) | payer BC ==
[2019-08-26 10:17] LABS: ALBUMIN 3.5 GM/DL (3.2-5.2); ALT/SGPT 17 U/L (12-78); BILIRUBIN,TOTAL 0.2 MG/DL (0.2-1.0); BLOOD UREA NITROGEN 9 MG/DL (7-18); CALCIUM LEVEL 8.5 MG/DL (8.5-10.1); CARBON DIOXIDE LEVEL 30 MEQ/L (21-32); CHLORIDE LEVEL 105 MEQ/L (98-107); CHOLESTEROL LEVEL 200 MG/DL (<200); CREATININE FOR GFR 0.72 MG/DL (0.55-1.30); GLOMERULAR FILTRATION RATE > 60.0 (>58); GLUCOSE, FASTING 110 MG/DL (70-100); HDL CHOLESTEROL 40 MG/DL (>40); LDL CHOLESTEROL 110 MG/DL (<100); NON-HDL-C 160 MG/DL; POTASSIUM SERUM 3.9 MEQ/L (3.5-5.1); SODIUM LEVEL 140 MEQ/L (136-145); TRIGLYCERIDES LEVEL 251 MG/DL (<150)
[2019-08-26 10:18] LABS: HEMOGLOBIN A1c 6.8 %
== END ==
LOC: M WUC 08:38
PROVIDERS: ATTEND Nurse Practitioner Family
DX: E11.9 Type 2 diabetes mellitus without complications (principal); E78.2 Mixed hyperlipidemia; I10 Essential (primary) hypertension

== ENCOUNTER → 2019-09-15 | Outpatient (CLI) | payer BC ==
--- NOTE | 2019-09-15 16:10 | REPMRS ---
Patient History The patient states she has not had a clinical breast exam in over a year. Family history of unknown cancer in maternal grandmother, breast cancer at age 48 in maternal aunt, unknown cancer at age 40 in mother. Taking unspecified hormones for 12 years. Digital Woman Screen Mammo: September 15, 2019 - Exam #: [id number] Bilateral CC and MLO view(s) were taken. Technologist: Mayra Ye, Technologist Prior study comparison: August 13, 2018, bilateral digital mammo screening bilat, performed at [facility]. FINDINGS: There are scattered fibroglandular densities. There has been no change in the appearance of the mammogram from the prior studies. There is a mild amount of scattered fibroglandular density which is fairly symmetric. There is no interval development of dominant mass, architectural distortion, or grouped microcalcification suggestive of malignancy. 3-D tomosynthesis shows no additional findings. Assessment: BI-RADS/ACR category 1 mammogram. Negative Mammogram. Recommendation Routine screening mammogram of both breasts in 1 year (for women over age 40). This patient's Lifetime Breast Cancer Risk is estimated at 14.4 %. This mammogram was interpreted with the aid of an FDA-approved computer-aided dectection system. Electronically Signed By: Adeel Benavidez MD 09/15/19 [id number]
== END ==
LOC: M WHC 14:25
PROVIDERS: ATTEND Obstetrics & Gynecology
DX: Z12.31 Encounter for screening mammogram for malignant neoplasm of breast (principal)

== ENCOUNTER 2020-01-19 21:42 | Emergency (ER) | payer BC ==
[~2020-01-19] VITALS: Ht 157.5 cm; Wt 118.2 kg
[2020-01-19] MEDS ORDERED: POTA10CA32 (21:54)
[2020-01-19] MEDS ORDERED: ISOVUE-370 76% 100ML VIAL As Ordered ONE (22:43)
[2020-01-19 22:46] LABS: BASO % 0.3 % (0.0-1.0); EOS # 0.2 10^3/uL (0.0-0.5); EOS % 2.2 % (0.0-3.0); HEMATOCRIT 38.5 % (36.0-47.0); HEMOGLOBIN 12.9 g/dl (12.0-15.5); LYMPH # 2.6 10^3/uL (1.5-5.0); LYMPH % 29.1 % (24.0-44.0); MEAN CORPUSCULAR HEMOGLOBIN 30.3 pg (27.0-33.0); MEAN CORPUSCULAR HGB CONC 33.5 g/dl (32.0-36.5); MEAN CORPUSCULAR VOLUME 90.4 fl (80.0-96.0); MONO # 0.4 10^3/uL (0.0-0.8); MONO % 3.9 % (0.0-5.0); NEUTROPHILS # 5.7 10^3/uL (1.5-8.5); NEUTROPHILS % 64.2 % (36.0-66.0); PLATELET COUNT, AUTOMATED 226 10^3/uL (150-450); RED BLOOD COUNT 4.26 10^6/uL (4.00-5.40); WHITE BLOOD COUNT 8.9 10^3/uL (4.0-10.0)
[2020-01-19 23:08] LABS: ALBUMIN 3.3 GM/DL (3.2-5.2); BILIRUBIN,DIRECT 0.1 MG/DL (0.0-0.2); BILIRUBIN,TOTAL 0.2 MG/DL (0.2-1.0); TOTAL PROTEIN 6.6 GM/DL (6.4-8.2)
--- NOTE | 2020-01-19 23:25 | REPVR ---
PROCEDURE INFORMATION: Exam: CT Abdomen And Pelvis With Contrast Exam date and time: 01/19/2020 10:52 PM Age: 39 years old Clinical indication: Abdominal pain; Localized; Right lower quadrant (rlq); Additional info: Rlq pain TECHNIQUE: Imaging protocol: Computed tomography of the abdomen and pelvis with intravenous contrast. Axial, coronal and sagittal reformatted images were created and reviewed. Radiation optimization: All CT scans at this facility use at least one of these dose optimization techniques: automated exposure control; mA and/or kV adjustment per patient size (includes targeted exams where dose is matched to clinical indication); or iterative reconstruction. Contrast material: ISO; Contrast volume: 100 ml; Contrast route: INTRAVENOUS (IV); COMPARISON: CT ABD/PEL W/IV ORAL CONTRAS 04/24/2019 1:57 AM FINDINGS: Lungs: Minimal bibasilar atelectatic change. Liver: Mild hepatomegaly. 1.6 cm simple cyst in the caudate lobe. Scattered subcentimeter low-density hepatic lesions, too small to characterize. Gallbladder and bile ducts: No radiodense gallstones. No biliary ductal dilatation. Pancreas: Innumerable cystic lesions in the pancreatic head, neck and uncinate process with adjacent coarse calcifications, similar to prior and likely related to chronic pancreatitis. Spleen: Unremarkable. Adrenals: Unremarkable. Kidneys and ureters: Simple bilateral renal cysts, measuring up to 5.4 cm on the right and 4.8 cm on the left, similar to prior (no follow-up is indicated based on the imaging appearance). Innumerable subcentimeter low-density renal lesions bilaterally, too small to characterize. No radiodense calculi. No hydronephrosis. Stomach and bowel: Evidence of prior bowel resection. Moderate amount of retained stool in the colon. No obstruction. No bowel wall thickening. No pneumatosis. Appendix: Normal. Intraperitoneal space: No free fluid. No organized fluid collection. No free air. Vasculature: Mild atherosclerotic disease. No aneurysm or dissection. Lymph nodes: No pathologically enlarged lymph nodes. Bladder: Unremarkable. Reproductive: Status post hysterectomy. Right ovarian follicles. Bones/joints: No acute osseous abnormality. Mild degenerative changes. Soft tissues: Wide-mouth ventral abdominal wall hernia containing nonobstructed small bowel. Small, fat containing left ventral abdominal wall hernia. IMPRESSION: 1. No CT evidence of acute intra-abdominal or pelvic pathology. 2. Additional findings, as above. COMMENTS: Consistent with the [employer]'s Incidental Findings Committee white paper (J Am Ren Radiol 2018): Any incidental renal lesion less than 1.0 cm or classified as too small to characterize, or any incidental cystic renal lesion characterized as simple-appearing, is likely benign. No follow-up imaging is recommended for these lesions per consensus recommendations based on imaging criteria. Electronically signed by: Sony Braun On 01/19/2020 23:24:53 PM
[2020-01-19 23:45] VITALS: BP 134/84
== END 2020-01-19 23:49 | disposition home or self-care (01) ==
LOC: M ED 21:42
DX: K43.9 Ventral hernia without obstruction or gangrene (principal); R73.03 Prediabetes; I10 Essential (primary) hypertension; G40.909 Epilepsy, unspecified, not intractable, without status epilepticus; E03.9 Hypothyroidism, unspecified; F41.9 Anxiety disorder, unspecified; F32.9 Major depressive disorder, single episode, unspecified; F17.210 Nicotine dependence, cigarettes, uncomplicated; Z79.84 Long term (current) use of oral hypoglycemic drugs; Z79.899 Other long term (current) drug therapy
CPT/HCPCS: 74177; 80047; 80076; 83690; 85025; 99284; Q9967

== ENCOUNTER → 2020-02-05 | Outpatient (REF) | payer BC ==
[~2020-02-05] MED LIST changes: +POTA10CA32
[2020-02-05 11:11] LABS: ALBUMIN 3.5 GM/DL (3.2-5.2); ALT/SGPT 20 U/L (12-78); BILIRUBIN,TOTAL 0.2 MG/DL (0.2-1.0); BLOOD UREA NITROGEN 13 MG/DL (7-18); CALCIUM LEVEL 8.7 MG/DL (8.5-10.1); CARBON DIOXIDE LEVEL 27 MEQ/L (21-32); CHLORIDE LEVEL 106 MEQ/L (98-107); CHOLESTEROL LEVEL 221 MG/DL (<200); CHOLESTEROL RISK RATIO 5.139 (<5); CREATININE FOR GFR 0.94 MG/DL (0.55-1.30); GLOMERULAR FILTRATION RATE > 60.0 (>58); GLUCOSE, FASTING 101 MG/DL (70-100); HDL CHOLESTEROL 43 MG/DL (>40); LDL CHOLESTEROL 125 MG/DL (<100); NON-HDL-C 178 MG/DL; POTASSIUM SERUM 3.9 MEQ/L (3.5-5.1); SODIUM LEVEL 141 MEQ/L (136-145); TOTAL PROTEIN 6.9 GM/DL (6.4-8.2); TRIGLYCERIDES LEVEL 264 MG/DL (<150)
[2020-02-05 11:33] LABS: HEMOGLOBIN A1c 7.8 %
== END ==
LOC: M LAB REF 10:27
PROVIDERS: ATTEND Family Medicine Addiction Medicine
DX: R53.83 Other fatigue (principal); I10 Essential (primary) hypertension; E11.9 Type 2 diabetes mellitus without complications; E03.8 Other specified hypothyroidism

== ENCOUNTER 2020-03-05 18:00 | Inpatient (IN) | payer BC ==
[2020-03-05] MEDS ORDERED: ACETAMINOPHEN 500 MG TAB ONE (19:54)
[2020-03-05] MEDS ORDERED: ISOVUE-370 76% 100ML VIAL ONE (20:44)
[2020-03-06] MEDS ORDERED: ENOXAPARIN 40MG/0.4ML SYRINGE (J1650 PER 10MG) ONE (08:50)
[2020-03-06] MEDS ORDERED: ENOXAPARIN 40MG/0.4ML SYRINGE (J1650 PER 10MG) As Ordered ONE (08:50)
[2020-03-06] MEDS ORDERED: buPROPion **XL** TABLET 150MG (WELLBUTRIN XL) As Ordered ONE (14:28)
[2020-03-06] MEDS ORDERED: lisinopriL 5 MG TAB As Ordered ONE (14:29)
[2020-03-06] MEDS ORDERED: AMPHETAMINE/DEXTROAMPHETAMINE 5 MG *ER* CAPSULE (ADDERALL XR) As Ordered ONE (14:30)
[2020-03-06] MEDS ORDERED: lisinopriL 5 MG TAB ONE (14:48)
[2020-03-06] MEDS ORDERED: buPROPion **XL** TABLET 150MG (WELLBUTRIN XL) ONE (14:48)
[2020-03-06] MEDS ORDERED: HumaLOG INSULIN (NovoLOG) PER UNIT As Ordered ONE (18:25)
[2020-03-06] MEDS ORDERED: HumaLOG INSULIN (NovoLOG) PER UNIT ONE (18:25)
[2020-03-07] MEDS ORDERED: ENOXAPARIN 40MG/0.4ML SYRINGE (J1650 PER 10MG) As Ordered ONE (09:01)
[2020-03-07] MEDS ORDERED: LISINOPRIL *2.5 MG* TAB As Ordered ONE (09:01)
[2020-03-07] MEDS ORDERED: ENOXAPARIN 40MG/0.4ML SYRINGE (J1650 PER 10MG) ONE (09:11)
[2020-03-07] MEDS ORDERED: LISINOPRIL *2.5 MG* TAB ONE (09:11)
[2020-03-07] MEDS ORDERED: AMPHETAMINE/DEXTROAMPHETAMINE 5 MG *ER* CAPSULE (ADDERALL XR) As Ordered ONE (09:11)
[2020-03-07] MEDS ORDERED: buPROPion **XL** TABLET 150MG (WELLBUTRIN XL) ONE (09:11)
[2020-03-07] MEDS ORDERED: buPROPion **XL** TABLET 150MG (WELLBUTRIN XL) As Ordered ONE (09:11)
[2020-03-07] MEDS ORDERED: FUROSEMIDE 20 MG TAB ONE (13:59)
[2020-03-07] MEDS ORDERED: metFORMIN (GLUCOPHAGE) 500 MG TAB ONE (13:59)
[2020-03-07] MEDS ORDERED: LEVOTHYROXINE 150MCG TABLET (0.15MG) ONE (13:59)
[2020-03-07] MEDS ORDERED: POTASSIUM CHLORIDE 10 MEQ SR TABLET ONE (13:59)
[2020-03-07] MEDS ORDERED: MIRALAX *UNIT DOSE* 17GM PACKET ONE (13:59)
[2020-03-07] MEDS ORDERED: MIRALAX *UNIT DOSE* 17GM PACKET As Ordered ONE (13:59)
[2020-03-07] MEDS ORDERED: metFORMIN (GLUCOPHAGE) 500 MG TAB As Ordered ONE (14:00)
[2020-03-07] MEDS ORDERED: FUROSEMIDE 20 MG TAB As Ordered ONE (14:00)
[2020-03-07] MEDS ORDERED: POTASSIUM CHLORIDE 10 MEQ SR TABLET As Ordered ONE (14:00)
[2020-03-07] MEDS ORDERED: LEVOTHYROXINE 150MCG TABLET (0.15MG) As Ordered ONE (14:10)
--- NOTE | 2020-04-12 14:24 | ECGEPIP ---
[facility] - ED Test Date: 2020-03-05 Pat Name: JESUSITA MUNGUIA Department: Room: [place] [address] Gender: Female Shingler: ISELA : 1980 Requested By: EMERGENCY ROOM Order Number: [id number] Reading MD: Larissa Pizano Measurements Intervals [place] Rate: 77 P: 58 MT: 163 QRS: 62 QRSD: 93 T: 46 QT: 395 QTc: 449 Interpretive Statements SINUS RHYTHM NORMAL ECG SEE SCANNED DOWNTIME REPORT
[2020-04-21 11:48] LABS: APPEARANCE, URINE HAZY (CLEAR); BACTERIA, URINE AUTO NEGATIVE (NEGATIVE); BILIRUBIN, URINE AUTO NEGATIVE (NEGATIVE); BLOOD, URINE BLOOD NEGATIVE (NEGATIVE); COLOR, URINE YELLOW (YELLOW); GLUCOSE, URINE (UA) AUTO NEGATIVE (NEGATIVE); KETONE, URINE AUTO NEGATIVE (NEGATIVE); LEUKOCYTE ESTERASE, URINE AUTO NEGATIVE (NEGATIVE); MUCUS, URINE SMALL (NEGATIVE); NITRITE, URINE AUTO NEGATIVE (NEGATIVE); PROTEIN, URINE AUTO NEGATIVE (NEGATIVE); RBC, URINE AUTO 3 /HPF (0-3); SPECIFIC GRAVITY URINE AUTO 1.021 (1.002-1.035); SQUAMOUS EPITHELIAL CELL UR AU 3 /HPF (0-6); UROBILINOGEN, URINE AUTO 0.2 mg/dL (0.0-2.0); WBC, URINE AUTO 1 /HPF (0-3)
[2020-04-21 17:18] LABS: BASO % 0.4 % (0.0-1.0); EOS # 0.1 10^3/uL (0.0-0.5); HEMATOCRIT 43.6 % (36.0-47.0); HEMOGLOBIN 14.3 g/dl (12.0-15.5); LYMPH # 2.1 10^3/uL (1.5-5.0); LYMPH % 19.8 % (24.0-44.0); MEAN CORPUSCULAR HEMOGLOBIN 29.7 pg (27.0-33.0); MEAN CORPUSCULAR HGB CONC 32.8 g/dl (32.0-36.5); MEAN CORPUSCULAR VOLUME 90.6 fl (80.0-96.0); MONO # 0.5 10^3/uL (0.0-0.8); MONO % 4.5 % (0.0-5.0); NEUTROPHILS % 73.8 % (36.0-66.0); PLATELET COUNT, AUTOMATED 308 10^3/uL (150-450); RED BLOOD COUNT 4.81 10^6/uL (4.00-5.40); WHITE BLOOD COUNT 10.8 10^3/uL (4.0-10.0)
[2020-04-22 18:29] LABS: HEMATOCRIT 36.9 % (36.0-47.0); MEAN CORPUSCULAR HEMOGLOBIN 30.2 pg (27.0-33.0); MEAN CORPUSCULAR HGB CONC 32.8 g/dl (32.0-36.5); PLATELET COUNT, AUTOMATED 221 10^3/uL (150-450); RED BLOOD COUNT 4.01 10^6/uL (4.00-5.40); WHITE BLOOD COUNT 7.8 10^3/uL (4.0-10.0)
[2020-04-22 18:32] LABS: HEMOGLOBIN 12.1 g/dl (12.0-15.5)
--- NOTE | 2020-04-25 08:30 | REP ---
ABDOMINAL SERIES HISTORY: Follow-up small bowel obstruction. TECHNIQUE: Supine and erect views of the abdomen and pelvis demonstrate no evidence of free intraperitoneal air. There is scattered air and fecal material throughout a nondilated colon. There are a couple of moderately dilated small bowel loops in the left lower quadrant. An accompanying view of the chest demonstrates no acute infiltrate. Heart and mediastinum are unremarkable. IMPRESSION: No free air. There are a few moderately dilated small bowel loops seen in the left lower quadrant. MTDD
--- NOTE | 2020-04-26 12:32 | ECGEPIP ---
SINUS BRADYCARDIA BORDERLINE ECG INTERPRETATION BASED ON A DEFAULT AGE OF 38 YEARS SIMILAR TO 20:16 SEE SCANNED DOWNTIME REPORT MTDD
--- NOTE | 2020-05-02 11:14 | HPE ---
DATE OF ADMISSION: March 05, 2020 CHIEF COMPLAINT: Abdominal pain, nausea. HISTORY OF PRESENT ILLNESS: Ms. Sena is a 40-year-old female who presented herself to the emergency room with right lower quadrant abdominal discomfort that she felt was gradually developing throughout the day. She has a prior history of bowel obstruction last year that needed abdominal exploration and likewise bowel resection. This was done by Dr. Petersen. This was following a left oophorectomy. She also had two prior sections via Pfannenstiel skin incision. She has a known ventral incisional hernia that she was seeing Dr. Petersen for and is actually scheduled for an elective hernia repair at the end of the month. She had reported some steady discomfort related to her ventral incisional hernia which is located at the lower umbilicus. The pain felt different and was mainly centered over the right lower quadrant area. She felt bloated and when standing up, she noted that her hernia is more prominent. She also felt mildly nauseated. Afraid that she might be having incarceration/strangulation of her hernia, she presented to the emergency room. While in the emergency room, she had an episode where she became diaphoretic, likewise her pain got slightly worse, and this by itself. She was eventually worked up and was found to have evidence for bowel obstruction at the level of the small bowel anastomosis, and subsequently admitted to my service. PAST MEDICAL HISTORY: * Hypertension. * Morbid obesity. * Diabetes. * Constipation. * Hypercholesterolemia. * History of seizures. * History of syncopal episodes. PAST SURGICAL HISTORY: * Two sections via Pfannenstiel skin incision. * Partial hysterectomy. * Left oophorectomy. * Lysis of adhesions with bowel resection for bowel obstruction. * Right carpal tunnel surgery. SOCIAL HISTORY: The patient reports that she is a current smoker. REVIEW OF SYSTEMS: The patient was previously well prior to the start of her symptoms. She was actually working in her garage most of the day yesterday. She denies any ongoing abnormal weight loss. She denies any shortness of breath on effort. She has known diabetes on metformin. She reports that she has not been compliant on her medication, although she tells me that her last hemoglobin A1c is less than 7. She denies any chronic abdominal complaints, but has a long history for constipation. She denies dysuria, hematuria, or nocturia. She denies any bleeding or clotting disorder. She is not on any anticoagulation. LIST OF MEDICATIONS: * Levothyroxine 300 mcg daily. * Klor-Con 10 mg daily. * Metformin 850 mg daily. * Furosemide 20 mg daily. * Lisinopril 5 mg daily. * Wellbutrin XL 300 mg daily. * Adderall 40 mg daily. PHYSICAL EXAMINATION: VITAL SIGNS: Aside from that time that she had some mild hypotension, she has actually been hemodynamically stable. GENERAL: The patient was seen in her bed and looked comfortable. She reports that she is feeling better. She reports that she is passing flatus, but still does not feel right. She does not look chronically ill. SKIN: Warm and dry. HEENT: Lips are mildly dry. NECK: Very short neck. CHEST: No chest wall abnormalities. Lungs are clear to auscultation bilaterally. No wheezing. HEART: Regular heart rate and rhythm. ABDOMEN: Obese, moderately distended throughout her abdomen. She has a vertical infraumbilical incision with reducible hernia. She has a Pfannenstiel incision. She has some port site incisions on the lower abdomen. She has hypoactive bowel sounds. She is mildly tender on palpation over the right lower quadrant area away from the hernia without any guarding. EXTREMITIES: Minimal bilateral lower extremity edema noted. LABORATORY DATA: Laboratories done in the ER yesterday shows electrolytes fall within normal limits, BUN 14, creatinine 0.98, white cell count 10.78, hemoglobin 14.3, hematocrit 43.6, platelet count 308. Repeat labs this morning shows normal electrolytes, stable BUN and creatinine, WBC 7.75, hemoglobin and hematocrit of 12 and 37. IMAGING: She had a CT of the abdomen and pelvis, a chest x-ray, and a gallbladder ultrasound performed as part of the workup of her discomfort. The gallbladder ultrasound did show cholelithiasis without any associated inflammation. CT of the abdomen and pelvis showed: * Small bowel obstruction with point of obstruction or transition in the right lower quadrant consistent with the small bowel anastomosis. * Fatty infiltration of the liver. * Small hypogastric ventral wall hernia adjacent to the incision containing small bowel segment with no associated obstruction. IMPRESSION: * Small bowel obstruction which may be related to the prior anastomosis or close to it. * Ventral incisional hernia that is reducible. * Morbid obesity. * Constipation. PLAN: She has a partial bowel obstruction in spite of her passing flatus. Unclear what prompted the mild episode of hypotension yesterday, as well as the diaphoresis, but that has and has not returned. She remains hemodynamically stable. Her abdomen, although distended, remains benign. She wants to hold off on the nasogastric tube placement and reports that this felt different than her previous bowel obstruction. The fact that she is constipated may be contributing to the bowel distention, so we will address that for now by giving her a dose of MiraLAX and Dulcolax suppository. I will resume most of her home medications. We will repeat an x-ray in the morning. If she continues to have abdominal distention or this gets worse or she starts throwing up, I advised her that she will need a nasogastric tube. We will keep her n.p.o. for now. We will continue to observe her course for the bowel obstruction. I will speak to Dr. Petersen in the morning, depending on her course and his availability, on how to proceed with the ventral hernia repair depending on if her bowel obstruction continues to get better. MIKHAIL
--- NOTE | 2020-05-05 10:28 | RO ---
DATE OF OPERATION: 03/21 PREOPERATIVE DIAGNOSIS: Incarcerated incisional hernia. POSTOPERATIVE DIAGNOSIS: Incarcerated incisional hernia times 2. PROCEDURE: Robotic assisted Incarcerated Incisional hernia repair times two SURGEON: Dr. Aydin Petersen SECUR[employer] SOLUTIONS ENGINEER: Kari Rey ANESTHESIA: General. ESTIMATED BLOOD LOSS: 5. COMPLICATIONS: None. INDICATIONS FOR PROCEDURE: The patient is a 39-year-old female who presents with incisional hernia below her umbilicus in the midline. Recommendation was to proceed with robotic repair. The risks and benefits of the procedure not limited to, but including bleeding, infection, hernia formation, hernia recurrence, damage to surrounding structures, need for further surgery were discussed in detail with the patient. Informed consent was obtained and procedure was planned. PROCEDURE: The patient was brought back to operating room 7. After successful sedation, the abdomen was sterilely prepped and draped. Next, a timeout was done to confirm proper patient and proper procedure. Following that, an 8 mm incision was made in the left upper quadrant and a Veress needle was inserted, and the abdomen was insufflation to 50 mmHg. The Veress needle was then removed and an 8 mm Optiview port was used to gain access to the abdomen. Once the abdomen was entered, adhesions were identified from the umbilicus inferiorly containing omentum and loops of bowel. Another 8 mm port was placed subxiphoid just lateral to midline and another one in the right upper quadrant. Once the ports were placed, they were docked to the robot. Next, the procedure was started by taking down all the adhesions to the anterior abdominal wall. During that process, two large defects in the midline, both containing loops of small bowel. These were all gently dissected free. Once this was all completed and all the loops of intestine and all the adhesions were freed up from the anterior abdominal wall, the defects were examined to determine the best way for closure. The smaller defect was just lateral to the umbilicus, measured about 1.5 x 3 cm in size. It was oval shaped in the horizontal position. I closed this one first with a two- layered closure with an 0 STRATAFIX suture. Inferior to that, there was another large defect measuring about 5 x 6 cm. This defect was also closed with a two- layered repair with a 0 STRATAFIX suture. Once that was completed, the larger defect was also reinforced with a Parietex composite mesh on top of it. This mesh was sutured to the abdominal wall using a 2-0 V-Loc suture. Once that was completed, the abdomen was desufflated, skin incision was closed with 4-0 Vicryl subcuticular sutures. The abdomen was clean and dried. Steri-Strips, 4 x 4 and tape were applied. MTDD
--- NOTE | 2020-05-06 14:27 | DS ---
DATE OF ADMISSION: 03/05/2020 DATE OF DISCHARGE: 03/07/2020 ADMITTING DIAGNOSES: 1. Ventral incisional hernia. 2. Small-bowel obstruction. 3. Morbid obesity. DISCHARGE DIAGNOSES: 1. Small-bowel obstruction, resolved. 2. Constipation. 3. Ventral incisional hernia. 4. Morbid obesity. HISTORY OF PRESENT ILLNESS: Ms. Sena presented to the emergency department on Saturday with increasing complaints of abdominal pain, nausea, though no vomiting. She has not had any bowel movement for the past 3 days, though she does report chronic constipation. She also has a known history of ventral incisional hernia on her midline infraumbilical area, for which she was originally scheduled for surgery at the end of this month by Dr. Petersen. In the emergency room (ER), she was suspected to have possible small-bowel obstruction at the area of her prior anastomosis, which is not related to the hernia. HOSPITAL COURSE: I saw her in the emergency room, and at that time she was actually getting better, so we opted not to put in a nasogastric tube. She was kept nothing by mouth, given intravenous (IV) fluid for hydration. I also ordered a dose of MiraLax, likewise a Dulcolax suppository. She has been also feeling constipated, and she does have evidence for constipation on her CT. Even prior to her getting those laxatives, she was able to have a large bowel movements at about hospital day #2, and she continues to improve. She was started on clear liquids and subsequently advanced to a regular diet the following day. On discharge, she had been tolerating food and is denying any nausea or vomiting. Her hernia is reducible. She will be discharged home, and she will keep her original surgical appointment with Dr. Petersen. DISCHARGE MEDICATIONS: Include all her home medications. These are: - levothyroxine 300 mcg daily - Klor-Con 10 mEq daily - metformin 850 mg daily - furosemide 20 mg daily - lisinopril 5 mg daily - Wellbutrin XL 300 mg daily - Adderall XR 20 mg daily New medications: - Colace 100 mg per tablet, two tablets at night. - She is also instructed to take Metamucil 17 grams as needed if she has not had any further bowel movements in 2-3 days. DISCHARGE INSTRUCTIONS: Diet regular, as tolerated. Activity as tolerated. Wound care is not applicable. She is instructed to keep her surgical appointment with Dr. Petersen. MIKHAIL
[2020-05-24 20:27] LABS: ALT/SGPT 20 U/L (12-78); BILIRUBIN,DIRECT 0.1 MG/DL (0.0-0.2); BILIRUBIN,TOTAL 0.5 MG/DL (0.2-1.0); BLOOD UREA NITROGEN 14 MG/DL (7-18); CALCIUM LEVEL 9.2 MG/DL (8.5-10.1); CARBON DIOXIDE LEVEL 32 MEQ/L (21-32); CHLORIDE LEVEL 102 MEQ/L (98-107); CK-MB VALUE MASS 2.5 NG/ML (<3.6); CPK CREATINE PHOSPHOKINASE 166 U/L (26-192); CREATININE FOR GFR 0.98 MG/DL (0.55-1.30); GLOMERULAR FILTRATION RATE > 60.0 (>58); GLUCOSE, FASTING 114 MG/DL (70-100); LIPASE 59 U/L (73-393); MB/CK RELATIVE INDEX 1.51 (< OR =4); POTASSIUM SERUM 3.4 MEQ/L (3.5-5.1); SODIUM LEVEL 139 MEQ/L (136-145); TOTAL PROTEIN 8.3 GM/DL (6.4-8.2); TROPONIN I < 0.02 NG/ML (< 0.10)
[2020-05-30 23:13] LABS: BLOOD UREA NITROGEN 12 MG/DL (7-18); CALCIUM LEVEL 7.7 MG/DL (8.5-10.1); CARBON DIOXIDE LEVEL 27 MEQ/L (21-32); CHLORIDE LEVEL 107 MEQ/L (98-107); CREATININE FOR GFR 0.74 MG/DL (0.55-1.30); GLOMERULAR FILTRATION RATE > 60.0 (>58); GLUCOSE, FASTING 119 MG/DL (70-100); POTASSIUM SERUM 3.6 MEQ/L (3.5-5.1); SODIUM LEVEL 139 MEQ/L (136-145)
== END 2020-03-07 17:13 | disposition home or self-care (01) | DRG 254 ==
LOC: M ED 18:00 → M MS5PR 22:20
PROVIDERS: ADMIT Surgery; ATTEND Surgery
DX: K43.0 Incisional hernia with obstruction, without gangrene (principal); I10 Essential (primary) hypertension; E66.01 Morbid (severe) obesity due to excess calories; E11.9 Type 2 diabetes mellitus without complications; K59.00 Constipation, unspecified; E78.00 Pure hypercholesterolemia, unspecified; F17.200 Nicotine dependence, unspecified, uncomplicated; Z79.899 Other long term (current) drug therapy; K43.6 Other and unspecified ventral hernia with obstruction, without gangrene

== ENCOUNTER 2020-03-21 06:41 | Day surgery (SDC) | payer BC ==
[~2020-03-21] VITALS: Ht 157.5 cm; Wt 122.9 kg
[2020-03-21] MEDS ORDERED: BUPIVACAINE/EPIN 0.25% 30 ML VIAL As Ordered ONE (07:06)
[2020-03-21] MEDS ORDERED: fentaNYL 100 MCG/2 ML INJECTION (J3010) As Ordered ONE ×4 (07:11→10:00)
[2020-03-21] MEDS ORDERED: ceFAZolin 2 GM/D5W 50 ML IV BAG (J0690 PER 500MG) As Ordered ONE (07:11)
[2020-03-21] MEDS ORDERED: MIDAZOLAM INJ 2MG/2ML VIAL (J2250 PER 1MG) As Ordered ONE (07:11)
[2020-03-21] MEDS ORDERED: propofoL 200 MG/20 ML VIAL As Ordered ONE ×2 (07:18→08:14)
[2020-03-21] MEDS ORDERED: dexameTHASONE 4 MG/ML 1ML VIAL (J1100 PER 1MG) As Ordered ONE (07:18)
[2020-03-21] MEDS ORDERED: ONDANSETRON 4MG/2ML VIAL As Ordered ONE (07:18)
[2020-03-21] MEDS ORDERED: LIDOCAINE 2% 100MG/5ML SDV (FOR ANES.) As Ordered ONE (07:18)
[2020-03-21] MEDS ORDERED: ROCURONIUM BROMIDE 50 MG/5 ML VIAL As Ordered ONE (07:18)
[2020-03-21] MEDS ORDERED: ceFAZolin SOD 2 GM in IV 1 EA IV ONE (07:30)
[2020-03-21 07:44] LABS: HEMATOCRIT 40.2 % (36.0-47.0); HEMOGLOBIN 13.1 g/dl (12.0-15.5); MEAN CORPUSCULAR HGB CONC 32.6 g/dl (32.0-36.5); MEAN CORPUSCULAR VOLUME 92.2 fl (80.0-96.0); PLATELET COUNT, AUTOMATED 268 10^3/uL (150-450); RED BLOOD COUNT 4.36 10^6/uL (4.00-5.40); WHITE BLOOD COUNT 8.3 10^3/uL (4.0-10.0)
[2020-03-21 08:02] LABS: BLOOD UREA NITROGEN 14 MG/DL (7-18); CALCIUM LEVEL 8.6 MG/DL (8.5-10.1); CARBON DIOXIDE LEVEL 28 MEQ/L (21-32); CHLORIDE LEVEL 106 MEQ/L (98-107); CREATININE FOR GFR 0.84 MG/DL (0.55-1.30); GLOMERULAR FILTRATION RATE > 60.0 (>58); GLUCOSE, FASTING 124 MG/DL (70-100); POTASSIUM SERUM 4.3 MEQ/L (3.5-5.1); SODIUM LEVEL 140 MEQ/L (136-145)
[2020-03-21] MEDS ORDERED: KETOROLAC 60MG 2ML VIAL As Ordered ONE (08:03)
[2020-03-21] MEDS ORDERED: ACETAMINOPHEN 1000MG 100ML IV BTL (OFIRMEV) (J0131 PER 10MG) As Ordered ONE (08:03)
[2020-03-21] MEDS ORDERED: SUGAMMADEX SODIUM 500 MG/5 ML VIAL (BRIDION) As Ordered ONE (08:03)
[2020-03-21] MEDS ORDERED: DESFLURANE 240 ML INHALANT As Ordered ONE (08:19)
[2020-03-21] MEDS ORDERED: LABETALOL 100MG/20ML VIAL As Ordered ONE (09:21)
[2020-03-21] MEDS: fentaNYL 100 MCG/2 ML INJECTION (J3010) IV PRN ×2 (10:00→10:05)
[2020-03-21] MEDS ORDERED: oxyCODONE 5MG TAB As Ordered ONE ×2 (10:17→12:25)
[2020-03-21] MEDS: oxyCODONE 5MG TAB PO PRN ×2 (10:18→12:30)
[2020-03-21] MEDS ORDERED: HYDROMORPHONE HCL 0.5 MG/ 0.5 ML SYRINGE (J1170 PER 1) IV PRN (11:00)
[2020-03-21] MEDS ORDERED: ONDANSETRON 4MG/2ML VIAL IV PRN (11:00)
[2020-03-21] MEDS ORDERED: NORCO, ANEXSIA 5/325MG TABLET (HYDROcodone/ACETAMINOPHEN) PO PRN (11:00)
[2020-03-21] MEDS ORDERED: LR 1,000 ML IV SCH (11:00)
[2020-03-21 12:30] VITALS: BP 127/81
== END 2020-03-21 13:00 | disposition home or self-care (01) ==
LOC: M SDC 06:41
PROVIDERS: ATTEND Surgery
DX: K43.0 Incisional hernia with obstruction, without gangrene (principal); I10 Essential (primary) hypertension; K59.00 Constipation, unspecified; F41.9 Anxiety disorder, unspecified; R73.03 Prediabetes; F17.218 Nicotine dependence, cigarettes, with other nicotine-induced disorders; Z79.899 Other long term (current) drug therapy; Z79.84 Long term (current) use of oral hypoglycemic drugs
CPT/HCPCS: 49655; 80048; 85027; C1781; J0131; J0690; J1100; J1885; J2250; J2405; J3010

== ENCOUNTER → 2020-04-22 | Outpatient (CLI) | payer BC ==
--- NOTE | 2020-04-29 13:48 | REP ---
ABDOMINAL SONOGRAPHY OF THE ABDOMINAL WALL HISTORY: Abdomen pain status post incisional hernia repair. COMPARISON: CT study 03/05/2020. The patient is two weeks status post incisional hernia repair just inferior to the umbilicus in the midline, now with palpable lump. Rule out recurrence. FINDINGS: There is no definite defect in the anterior abdominal wall seen sonographically. To speak to the mesh repair in the infraumbilical midline, there is a fluid collection consistent with a seroma, this is elongate measuring 5.5 cm in great [id number] dimension x 1.0 cm in greatest thickness x 3.8 cm in craniocaudal extent. At the level of the palpable lump in the anterior midline, there is a subcutaneous spherical complex hypoechoic fluid collection with enhanced through transmission measuring 3.3 x 3.4 x 2.8 cm. There is a hyperechoic border or capsule. This is most compatible with a postoperative hematoma/seroma. No other finding. MTDD
== END ==
LOC: M RAD 07:35
PROVIDERS: ATTEND Nurse Practitioner
DX: R10.9 Unspecified abdominal pain (principal)

== ENCOUNTER → 2020-11-08 | Outpatient (REF) | payer BC ==
[~2020-11-08] MED LIST changes: -LISI-542 PO; +LISI-898 PO
[2020-11-08 13:22] LABS: ALBUMIN 3.6 GM/DL (3.2-5.2); ALT/SGPT 24 U/L (12-78); BILIRUBIN,TOTAL 0.2 MG/DL (0.2-1.0); BLOOD UREA NITROGEN 13 MG/DL (7-18); CALCIUM LEVEL 8.6 MG/DL (8.5-10.1); CARBON DIOXIDE LEVEL 32 MEQ/L (21-32); CHLORIDE LEVEL 102 MEQ/L (98-107); CHOLESTEROL LEVEL 324 MG/DL (<200); CREATININE FOR GFR 0.94 MG/DL (0.55-1.30); GLOMERULAR FILTRATION RATE > 60.0 (>58); GLUCOSE, FASTING 163 MG/DL (70-100); HDL CHOLESTEROL 48 MG/DL (>40); LDL CHOLESTEROL 224 MG/DL (<100); NON-HDL-C 276 MG/DL; SODIUM LEVEL 139 MEQ/L (136-145); TRIGLYCERIDES LEVEL 262 MG/DL (<150)
[2020-11-08 13:35] LABS: HEMOGLOBIN A1c 8.4 %
== END ==
LOC: M LAB REF 11:22
PROVIDERS: ATTEND Family Medicine Addiction Medicine
DX: E03.9 Hypothyroidism, unspecified (principal); E11.9 Type 2 diabetes mellitus without complications

== ENCOUNTER 2020-11-30 10:23 | Emergency (ER) | payer BC, OTHER ==
[~2020-11-30] VITALS: Ht 157.5 cm; Wt 137.4 kg
[2020-11-30 11:00] LABS: BASO % 0.4 % (0.0-1.0); EOS % 2.1 % (0.0-3.0); HEMATOCRIT 37.8 % (36.0-47.0); HEMOGLOBIN 12.4 g/dl (12.0-15.5); LYMPH # 2.3 10^3/uL (1.5-5.0); LYMPH % 31.5 % (24.0-44.0); MEAN CORPUSCULAR HEMOGLOBIN 30.5 pg (27.0-33.0); MEAN CORPUSCULAR HGB CONC 32.8 g/dl (32.0-36.5); MEAN CORPUSCULAR VOLUME 92.9 fl (80.0-96.0); MONO % 4.9 % (2.0-8.0); NEUTROPHILS # 4.4 10^3/uL (1.5-8.5); NEUTROPHILS % 60.6 % (36.0-66.0); PLATELET COUNT, AUTOMATED 258 10^3/uL (150-450); RED BLOOD COUNT 4.07 10^6/uL (4.00-5.40); WHITE BLOOD COUNT 7.3 10^3/uL (4.0-10.0)
[2020-11-30 11:01] LABS: EOS # 0.2 10^3/uL (0.0-0.5); MONO # 0.4 10^3/uL (0.0-0.8)
--- NOTE | 2020-11-30 11:06 | REP ---
INDICATION: DYSPNEA/COUGH. COMPARISON: 03/07/2020. TECHNIQUE: Single portable AP view of the chest was performed. FINDINGS: There is no acute infiltrate or pulmonary edema. Lungs are clear. The heart is not significantly enlarged. The mediastinal silhouette is unremarkable. The visualized osseous structures are intact. IMPRESSION: No acute pulmonary disease. <Electronically signed by Aydin Canales > 11/30/20 [id number]
[2020-11-30 11:18] LABS: BLOOD UREA NITROGEN 16 MG/DL (7-18); CARBON DIOXIDE LEVEL 28 MEQ/L (21-32); CHLORIDE LEVEL 102 MEQ/L (98-107); CREATININE FOR GFR 0.92 MG/DL (0.55-1.30); GLOMERULAR FILTRATION RATE > 60.0 (>58); GLUCOSE, FASTING 218 MG/DL (70-100); POTASSIUM SERUM 4.2 MEQ/L (3.5-5.1); SODIUM LEVEL 136 MEQ/L (136-145)
[2020-11-30 11:19] LABS: CALCIUM LEVEL 8.7 MG/DL (8.5-10.1)
[2020-11-30 11:25] LABS: ALBUMIN 3.5 GM/DL (3.2-5.2); BILIRUBIN,DIRECT 0.1 MG/DL (0.0-0.2); BILIRUBIN,TOTAL 0.4 MG/DL (0.2-1.0); TOTAL PROTEIN 7.5 GM/DL (6.4-8.2)
[2020-11-30] MEDS ORDERED: ISOVUE-370 76% 100ML VIAL As Ordered ONE (11:31)
--- NOTE | 2020-11-30 12:17 | REP ---
INDICATION: sob cp ro pe. COMPARISON: 03/05/2020. TECHNIQUE: CT angiogram chest performed following the intravenous administration of 100 cc of Isovue 370. Sagittal and coronal reconstruction images are performed. FINDINGS: Lungs: Clear, no infiltrate or nodule. Mediastinum: No adenopathy. Pulmonary arteries: No evidence of pulmonary embolism. Shannon: No adenopathy. Axilla: No adenopathy. Pleura: No effusion. Heart: Not enlarged. Thoracic aorta: No aneurysm or dissection. Upper abdominal structures: There is a stable cyst in the caudate lobe of the liver. There are cysts in the body of the pancreas which appear stable compared to the prior study. There is a stable cyst in the upper pole the left kidney. Visualized osseous structures: There are mild degenerative changes of the spine without compression deformity.. IMPRESSION: No CT evidence of pulmonary embolism. No infiltrate seen. <Electronically signed by Aydin Canales > 11/30/20 [id number]
[2020-11-30 12:32] LABS: RSV AMPLIFICATION NEGATIVE (NEGATIVE)
[2020-11-30 13:37] VITALS: BP 117/57
--- NOTE | 2020-11-30 20:28 | ECGEPIP ---
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
== END 2020-11-30 13:55 | disposition home or self-care (01) ==
LOC: M ED 10:23
DX: E11.65 Type 2 diabetes mellitus with hyperglycemia (principal); I10 Essential (primary) hypertension; J45.909 Unspecified asthma, uncomplicated; E78.9 Disorder of lipoprotein metabolism, unspecified; F33.9 Major depressive disorder, recurrent, unspecified; F41.9 Anxiety disorder, unspecified; Z79.899 Other long term (current) drug therapy; Z79.890 Hormone replacement therapy; Z79.84 Long term (current) use of oral hypoglycemic drugs
CPT/HCPCS: 36415; 71045; 71275; 80048; 80076; 83880; 85025; 87631; 93005; 93041; 94760; 99285; Q9967

== ENCOUNTER → 2021-05-26 | Outpatient (REF) | payer OTHER ==
[~2021-05-26] MED LIST changes: +METF-1191 PO; -METF-954 PO
== END ==
LOC: M LAB REF 16:41
PROVIDERS: ATTEND Nurse Practitioner Family
DX: N18.2 Chronic kidney disease, stage 2 (mild) (principal)

== ENCOUNTER → 2021-09-13 | Outpatient (CLI) | payer OTHER ==
[~2021-09-13] MED LIST changes: -LISI-898 PO; +LISI5TAB11 PO; +PROHANCE 279.3MG/ML 15ML VIAL As Ordered ONE; +PROHANCE 279.3MG/ML 5ML VIAL As Ordered ONE
== END ==
LOC: M RAD 11:12
PROVIDERS: ATTEND Family Medicine Addiction Medicine
DX: N63.10 Unspecified lump in the right breast, unspecified quadrant (principal)
CPT/HCPCS: A9576; C8908

== ENCOUNTER → 2022-01-05 | Outpatient (CLI) | payer OTHER ==
[~2022-01-05] MED LIST changes: -PROHANCE 279.3MG/ML 15ML VIAL As Ordered ONE; -PROHANCE 279.3MG/ML 5ML VIAL As Ordered ONE
== END ==
LOC: M RAD 14:56
PROVIDERS: ATTEND Nurse Practitioner Family
DX: Q61.2 Polycystic kidney, adult type (principal)

== ENCOUNTER → 2022-03-09 | Outpatient (CLI) | payer OTHER | LOC: M WUC 15:46 | PROVIDERS: ATTEND Family Medicine Addiction Medicine | DX: K85.10 Biliary acute pancreatitis without necrosis or infection (principal); K59.09 Other constipation; K86.2 Cyst of pancreas ==

== ENCOUNTER → 2022-05-25 | Outpatient (CLI) | payer OTHER, MEDICAID | LOC: M PLARAD 07:48 | PROVIDERS: ATTEND Physician Assistant | DX: K85.10 Biliary acute pancreatitis without necrosis or infection (principal); K86.2 Cyst of pancreas; Q61.02 Congenital multiple renal cysts ==

== ENCOUNTER → 2022-06-14 | Outpatient (REF) | payer OTHER, MEDICAID ==
[2022-06-14 19:40] LABS: BACTERIA, URINE NONE SEEN; HYALINE CAST, URINE NONE SEEN /lpf (0-1); RBC, URINE NONE SEEN /hpf (0-3); SQUAMOUS EPITHELIAL CELL URINE SMALL AMOUNT /hpf (SMALL AMT); WBC, URINE NONE SEEN /hpf (0-3); YEAST, URINE SMALL AMOUNT
== END ==
LOC: M LAB REF 17:12
PROVIDERS: ATTEND Nurse Practitioner Family
DX: R31.9 Hematuria, unspecified (principal)

== ENCOUNTER → 2022-12-07 | Outpatient (CLI) | payer OTHER, MEDICAID ==
[~2022-12-07] MED LIST changes: -POTA10CA32; +POTA10CA33
== END ==
LOC: M PLARAD 09:32
PROVIDERS: ATTEND Internal Medicine Gastroenterology
DX: K86.2 Cyst of pancreas (principal); N28.1 Cyst of kidney, acquired; K76.89 Other specified diseases of liver

== ENCOUNTER 2023-04-08 15:18 | Emergency (ER) | payer OTHER ==
[~2023-04-08] VITALS: Ht 157.5 cm; Wt 114.9 kg
[~2023-04-08 15:18] MED LIST changes: -POTA10CA33; +POTA10CA60 PO
[2023-04-08 17:23] LABS: BASO # 0.1 10^3/uL (0.0-0.2); BASO % 0.4 % (0.0-1.0); EOS # 0.1 10^3/uL (0.0-0.5); EOS % 0.9 % (0.0-3.0); HEMATOCRIT 45.3 % (36.0-47.0); HEMOGLOBIN 14.9 g/dl (12.0-15.5); LYMPH # 2.5 10^3/uL (1.5-5.0); LYMPH % 22.4 % (24.0-44.0); MEAN CORPUSCULAR HEMOGLOBIN 28.8 pg (27.0-33.0); MEAN CORPUSCULAR HGB CONC 32.9 g/dl (32.0-36.5); MEAN CORPUSCULAR VOLUME 87.6 fl (80.0-96.0); MONO # 0.4 10^3/uL (0.0-0.8); MONO % 3.8 % (2.0-8.0); NEUTROPHILS # 8.1 10^3/uL (1.5-8.5); PLATELET COUNT, AUTOMATED 267 10^3/uL (150-450); RED BLOOD COUNT 5.17 10^6/uL (4.00-5.40); WHITE BLOOD COUNT 11.3 10^3/uL (4.0-10.0)
[2023-04-08 17:45] LABS: ALBUMIN 3.6 G/DL (3.2-5.2); ALKALINE PHOSPHATASE 97 U/L (46-116); ALT/SGPT 14 U/L (7.0-40); AST/SGOT < 8 U/L (<34); BILIRUBIN,TOTAL 0.2 MG/DL (0.3-1.2); BLOOD UREA NITROGEN 12 MG/DL (9-23); CALCIUM LEVEL 9.2 MG/DL (8.5-10.1); CARBON DIOXIDE LEVEL 27 MMOL/L (20-31); CHLORIDE LEVEL 105 MMOL/L (98-107); CREATININE FOR GFR 0.64 MG/DL (0.55-1.30); GLOMERULAR FILTRATION RATE > 60.0 (>58); GLUCOSE, FASTING 169 MG/DL (60-100); POTASSIUM SERUM 3.7 MMOL/L (3.5-5.1); SODIUM LEVEL 141 MMOL/L (136-145); TOTAL PROTEIN 6.9 G/DL (5.7-8.2)
[2023-04-08] MEDS ORDERED: NS 1,000 ML IV ONE ×2 (19:25→23:20)
[2023-04-08 20:08] LABS: VENOUS BASE EXCESS -1.6 (-2.0-2.0); VENOUS HCO3 24.7 MMOL/L (23.0-27.0); VENOUS O2 SATURATION 69.7 % (60.0-80.0); VENOUS PARTIAL PRESSURE CO2 47.8 mmHg (38.0-50.0); VENOUS PARTIAL PRESSURE O2 38.1 mmHg (30.0-50.0); VENOUS PH 7.332 UNITS (7.330-7.430); VENOUS STANDARD HCO3 22.4 MMOL/L; VENOUS TOTAL CO2 26.2 MMOL/L (24.0-28.0)
[2023-04-08 20:51] LABS: PROCALCITONIN <0.04 ng/ml
[2023-04-08 20:53] LABS: ALBUMIN 3.5 G/DL (3.2-5.2); ALKALINE PHOSPHATASE 92 U/L (46-116); ALT/SGPT 17 U/L (7.0-40); AST/SGOT 33 U/L (<34); BILIRUBIN,DIRECT < 0.1 MG/DL (<0.4); BILIRUBIN,TOTAL 0.3 MG/DL (0.3-1.2); CK-MB VALUE MASS < 1.0 NG/ML (<3.6); CPK CREATINE PHOSPHOKINASE 56 U/L (34-145); MB/CK RELATIVE INDEX 1.78 (< OR =4); TOTAL PROTEIN 6.9 G/DL (5.7-8.2)
[2023-04-08] MEDS ORDERED: ISOVUE-370 76% 100ML VIAL As Ordered ONE (23:39)
[2023-04-09 00:22] LABS: BARBITURATES URINE NEGATIVE (NEGATIVE); BENZODIAZEPINES URINE NEGATIVE (NEGATIVE); COCAINE METABOLITE URINE NEGATIVE (NEGATIVE); METHADONE URINE NEGATIVE (NEGATIVE); OPIATES URINE NEGATIVE (NEGATIVE); PHENCYCLIDINE URINE NEGATIVE (NEGATIVE)
[2023-04-09 00:27] LABS: AMPHETAMINES LEVEL URINE POSITIVE (NEGATIVE); CANNABINOIDS URINE POSITIVE (NEGATIVE)
[2023-04-09 00:36] LABS: OSMOLALITY SERUM 295 MOSM/KG (275-295)
[2023-04-09 00:50] LABS: CK-MB VALUE MASS < 1.0 NG/ML (<3.6); ETHYL ALCOHOL (ETHANOL) < 0.003 % (0.000-0.010)
[2023-04-09 00:52] LABS: ACETAMINOPHEN LEVEL < 2.0 UG/ML (10.0-20.0); CPK CREATINE PHOSPHOKINASE 33 U/L (34-145); MB/CK RELATIVE INDEX 3.03 (< OR =4); SALICYLATE LEVEL < 3.0 MG/DL (<30)
[2023-04-09 00:54] LABS: THYROID STIMULATING HORMONE 0.059 uIU/ML (0.55-4.78)
[2023-04-09] MEDS ORDERED: LR 1,000 ML IV ONE (02:10)
[2023-04-09] MEDS ORDERED: PIPERACILLIN/TAZOBACTAM SOD 4.5 GM in D5W MINI-BAG PLUS 50 ML IV ONE (02:10)
[2023-04-09] MEDS ORDERED: METF500T13 PO (03:28)
[2023-04-09] MEDS ORDERED: VYVA30CA4 PO (03:28)
[2023-04-09] MEDS ORDERED: SEMA0.257 SC (03:28)
[2023-04-09] MEDS ORDERED: STEG15TA PO (03:28)
[2023-04-09] MEDS ORDERED: ALBU8.5H INH (03:28)
[2023-04-09] MEDS ORDERED: ERGO500029 PO (03:28)
[2023-04-09] MEDS ORDERED: VARE1TAB7 PO (03:28)
[2023-04-09] MEDS ORDERED: SYNT300T2 PO (03:28)
[2023-04-09] MEDS ORDERED: LISI10TA22 PO (03:28)
[2023-04-09] MEDS ORDERED: HOME MED LIST COMPLETE! XX SCH (03:30)
[2023-04-09 05:28] VITALS: BP 121/68; TEMP 97.5; O2SAT 95
== END 2023-04-09 05:29 | disposition home or self-care (01) ==
LOC: M ED 15:18
DX: I10 Essential (primary) hypertension (principal); R50.9 Fever, unspecified; E11.9 Type 2 diabetes mellitus without complications; E03.9 Hypothyroidism, unspecified; F41.9 Anxiety disorder, unspecified; F32.A Depression, unspecified; Z79.899 Other long term (current) drug therapy
CPT/HCPCS: 70450; 71046; 71275; 74174; 80053; 80076; 80143; 80307; 81001; 82077; 82140; 82550; 82553; 82803; 83605; 83880; 83930; 84145; 84443; 84484; 85025; 87040; 87486; 87581; 87633; 87798; 93005; 96361; 96365; 99284; J2543; Q9967

== ENCOUNTER → 2024-10-05 | Outpatient (CLI) | payer BC ==
[~2024-10-05] MED LIST changes: +ALBU8.5H INH; +BUPR-597 PO; -BUPR300T92 PO; +ERGO500029 PO; +LISI10TA22 PO; -POTA10CA60 PO; +POTA10CA70 PO; +SEMA0.257 SC; +STEG15TA PO; +SYNT300T2 PO; +VARE1TAB7 PO; +VYVA30CA4 PO
== END ==
LOC: M RAD 11:49
PROVIDERS: ATTEND Nurse Practitioner Family
DX: Q61.2 Polycystic kidney, adult type (principal); N18.2 Chronic kidney disease, stage 2 (mild)